=== PATIENT | female | born 1970 | race Caucasian/White ===

== ENCOUNTER 2017-03-23 10:29 | Emergency (ER) | payer BC ==
[2017-03-23] MEDS ORDERED: Meperidine SYRINGE* 50 MG/ML IV ONE (11:31)
[2017-03-23] MEDS ORDERED: Ondansetron INJ* 2 MG/ML VIAL IV ONE (11:31)
[2017-03-23 11:43] LABS: Hematocrit 48 % (35-47); Hemoglobin 15.9 g/dl (12.0-16.0); Mean Corpuscular HGB Conc 33 g/dl (31-36); Mean Corpuscular Hemoglobin 32 pg (27-31); Mean Corpuscular Volume 96 fL (80-97); Mean Platelet Volume 10 um3 (7.4-10.4); Red Blood Count 5.01 10^6/ul (4.0-5.4); Red Cell Distribution Width 13 % (10.5-15); White Blood Count 9.9 10^3/ul (3.5-10.8)
[2017-03-23 11:50] LABS: Urine Bacteria Absent (Absent); Urine Bilirubin Negative (Negative); Urine Glucose Negative (Negative); Urine Nitrite Negative (Negative)
[2017-03-23 11:55] LABS: Albumin 4.2 g/dL (3.2-5.2); BUN/Creatinine Ratio 16.7 (8-20); C Reactive Protein 2.43 mg/L (< 5.00); Calcium 9.2 mg/dL (8.6-10.3); EGFR African American 101.8 (>60); EGFR Non-African American 79.2 (>60); Globulin 3.1 g/dL (2-4); Potassium 4.1 mmol/L (3.5-5.0); Total Bilirubin 0.4 mg/dL (0.2-1.0); Total Protein 7.3 g/dL (6.4-8.9)
--- NOTE | 2017-03-23 13:42 | RAD ---
CLINICAL HISTORY: Right-sided pain COMPARISON: None TECHNIQUE: Multiple contiguous axial CT scans were obtained of the abdomen and pelvis, without intravenous contrast enhancement. Coronal and sagittal multiplanar reformations are submitted for review. Oral contrast was not administered. FINDINGS: The study is limited by the lack of intravenous contrast. This limits evaluation of the solid organs and vasculature. LUNG BASES: The lung bases are clear. LIVER: The liver is normal in shape, size, contour, and attenuation. BILE DUCTS: There is no intrahepatic or extrahepatic biliary dilatation. GALLBLADDER: The gallbladder is normal, without pericholecystic inflammatory change. PANCREAS: The pancreas is normal, without mass or ductal dilatation. SPLEEN: Normal in size and appearance. UPPER GI TRACT: Evaluation of the gastrointestinal tract is limited by incomplete gastric distention. The upper GI tract is unremarkable. SMALL BOWEL AND MESENTERY: The small bowel is normal in contour, course, and caliber. There is no obstruction or dilatation. COLON: The colon is normal in contour, course, caliber. There is no pericolonic inflammatory change. The appendix is not visualized. There is no appreciable inflammatory change within the right lower quadrant. ADRENALS: Normal bilaterally. KIDNEYS: There is a 0.3 cm calculus of the upper pole of left kidney. There is no appreciable hydronephrosis. There is a fatty lesion of the upper pole left kidney consistent with a small angiomyolipoma. BLADDER: The bladder is smooth in contour. PELVIC ORGANS: The pelvic organs are not visualized. AORTA: The aorta is normal. IVC: Unremarkable LYMPH NODES: There is no lymphadenopathy by size criteria. ABDOMINAL WALL: There is no evidence for abdominal wall hernia. BONES AND SOFT TISSUES: Degenerative changes are noted at L5-S1. A dorsal column stimulator generator noted OTHER: None IMPRESSION: LEFT NEPHROLITHIASIS WITHOUT HYDRONEPHROSIS
[2017-03-23 14:28] VITALS: BP 129/77
--- NOTE | 2017-03-24 08:15 | ED ---
Enrike Patton Benjamin, scribed for David Wood MD on 03/23/17 at 1151 . Abdominal Pain/Female - HPI Summary HPI Summary: 47yo female c/o sharp RUQ abdominal pain. Pt had multiple GI tests done recently , including endoscopy, gastroparesis, gall bladder US. Pt has been having nonstop diarrhea for about 1 month, which has been mucousy and watery at times. Pt says her pain worsens with greasy food and has been progressively worsening. Pt is a smoker and a drinker. - History of Current Complaint Chief Complaint: EDAbdPain Stated Complaint: RIGHT ABD PAIN Time Seen by Provider: 03/23/17 10:50 Hx Obtained From: Patient Hx Last Menstrual Period: hysterectomy Onset/Duration: Gradual Onset, Lasting Weeks, Still Present Timing: Constant Severity Initially: Moderate Severity Currently: Moderate Pain Intensity: 8 Pain Scale Used: 0-10 Numeric Location: Discrete At: RUQ Radiates: No Character: Sharp Aggravating Factor(s): Food - greasy food Alleviating Factor(s): Nothing Associated Signs and Symptoms: Positive: Diarrhea Allergies/Adverse Reactions: Allergies Allergy/AdvReac Type Severity Reaction Status Date / Time Sulfa Drugs Allergy Unknown Verified 03/23/17 10:52 Reaction Details IV contrast Allergy Mild Hives Uncoded 07/18/16 08:21 Home Medications: Home Medications Cetirizine* [ZyrTEC 10 MG TAB*] 1 tab PO DAILY 03/23/17 [History Confirmed 03/23] PMH/Surg Hx/FS Hx/Imm Hx Endocrine/Hematology History: Reports: Hx Thyroid Disease - HYPOTHYROID Cardiovascular History: Denies: Hx Pacemaker/ICD - SPINAL STIMULATOR- NO MRI Musculoskeletal History: Reports: Other Musculoskeletal History - SPINAL CORD STIMULATOR Sensory History: Reports: Hx Contacts or Glasses - INSTRUCTS GIVEN, Hx Glaucoma - RIGHT EYE Denies: Hx Hearing Aid Opthamlomology History: Reports: Hx Contacts or Glasses - INSTRUCTS GIVEN, Hx Glaucoma - RIGHT EYE Neurological History: Reports: Other Neuro Impairments/Disorders - SPINAL CORD STIMULATOR IN PLACE- AFFECTING SCIATIC NERVE RIGHT SIDE - Surgical History Surgery Procedure, Year, and Place: partial Hysterectomy. RIGHT shoulder. BACK SURG - PRECISION PLUS SPINAL CORD STIMULATOR - NOT MRI SAFE. INSERTION OF SPINAL CORD STIMULATOR. Right Knee - arthoscopic Hx Anesthesia Reactions: No Infectious Disease History: No Infectious Disease History: Denies: Hx Clostridium Difficile, Hx Hepatitis, Hx Human Immunodeficiency Virus (HIV), Hx of Known/Suspected MRSA, Hx Shingles, Hx Tuberculosis, Hx Known/ Suspected VRE, Hx Known/Suspected VRSA, History Other Infectious Disease, Traveled Outside the [place] in Last 30 Days - Family History Known Family History: Positive: None, Cardiac Disease - Social History Occupation: Employed Full-time Lives: With Family Alcohol Use: Occasionally Alcohol Amount: 2 times a week drinking 1-4 drinks Substance Use Type: Reports: None Smoking Status (MU): Light Every Day Tobacco Smoker Type: Cigarettes Amount Used/How Often: 1/2 PPD X 25 YEARS Length of Time of Smoking/Using Tobacco: 27 years Have You Smoked in the Last Year: Yes Review of Systems Constitutional: Negative Eyes: Negative ENT: Negative Cardiovascular: Negative Respiratory: Negative Positive: Abdominal Pain, Diarrhea Genitourinary: Negative Musculoskeletal: Negative Skin: Negative Neurological: Negative Psychological: Normal All Other Systems Reviewed And Are Negative: Yes Physical Exam Vital Signs On Initial Exam: Initial Vitals Temp Pulse Resp BP Pulse Ox 97.7 F 84 20 151/100 100 03/23/17 10:32 03/23/17 10:32 03/23/17 10:32 03/23/17 10:32 03/23/17 10:32 Vital Signs Reviewed: Yes Appearance: Positive: Well-Appearing, Well-Nourished, Pain Distress - mild Skin: Positive: Warm, Skin Color Reflects Adequate Perfusion, Dry, Other - no jaundice Head/Face: Positive: Normal Head/Face Inspection Eyes: Positive: Normal ENT: Positive: Normal ENT inspection Neck: Positive: Supple, Nontender Respiratory/Lung Sounds: Positive: Clear to Auscultation, Breath Sounds Present Cardiovascular: Positive: RRR Abdomen Description: Positive: Soft, Other: - RUQ pain Bowel Sounds: Positive: Present Musculoskeletal: Positive: Normal Neurological: Positive: Normal Psychiatric: Positive: Affect/Mood Appropriate - Nehemias Coma Scale Coma Scale Total: 15 Diagnostics - Vital Signs Vital Signs Temp Pulse Resp BP Pulse Ox 03/23/17 10:53 140/104 03/23/17 10:35 98.0 F 87 20 151/100 99 03/23/17 10:32 97.7 F 84 20 151/100 100 - Laboratory Lab Results: Lab Results 03/23/17 03/23/17 03/23/17 Range/Units 10:50 10:58 10:58 WBC 9.9 (3.5-10.8) 10^3/ul RBC 5.01 (4.0-5.4) 10^6/ul Hgb 15.9 (12.0-16.0) g/dl Hct 48 H (35-47) % MCV 96 (80-97) fL MCH 32 H (27-31) pg MCHC 33 (31-36) g/dl RDW 13 (10.5-15) % Plt Count 218 (150-450) 10^3/ul MPV 10 (7.4-10.4) um3 Neut % (Auto) 60.8 (38-83) % Lymph % (Auto) 29.4 (25-47) % [place] % (Auto) 5.3 (1-9) % Eos % (Auto) 4.0 (0-6) % Baso % (Auto) 0.5 (0-2) % Absolute Neuts (auto) 6.0 (1.5-7.7) 10^3/ul Absolute Lymphs (auto) 2.9 (1.0-4.8) 10^3/ul Absolute Monos (auto) 0.5 (0-0.8) 10^3/ul Absolute Eos (auto) 0.4 (0-0.6) 10^3/ul Absolute Basos (auto) 0 (0-0.2) 10^3/ul Absolute Nucleated RBC 0.01 10^3/ul Nucleated RBC % 0.1 Sodium 133 (133-145) mmol/L Potassium 4.1 (3.5-5.0) mmol/L Chloride 103 (101-111) mmol/L Carbon Dioxide 24 (22-32) mmol/L Anion Gap 6 (2-11) mmol/L BUN 13 (6-24) mg/dL Creatinine 0.78 (0.51-0.95) mg/dL Est GFR ( Amer) 101.8 (>60) Est GFR (Non-Af Amer) 79.2 (>60) BUN/Creatinine Ratio 16.7 (8-20) Glucose 113 H (70-100) mg/dL Lactic Acid (0.5-2.0) mmol/L Calcium 9.2 (8.6-10.3) mg/dL Total Bilirubin 0.40 (0.2-1.0) mg/dL AST 18 (13-39) U/L ALT 29 (7-52) U/L Alkaline Phosphatase 58 (34-104) U/L C-Reactive Protein 2.43 (< 5.00) mg/L Total Protein 7.3 (6.4-8.9) g/dL Albumin 4.2 (3.2-5.2) g/dL Globulin 3.1 (2-4) g/dL Albumin/Globulin Ratio 1.4 (1-3) Lipase 61 (11.0-82.0) U/L Urine Color Straw Urine Appearance Clear Urine pH 5.0 (5-9) Ur Specific [place] 1.005 L (1.010-1.030) Urine Protein Negative (Negative) Urine Ketones Negative (Negative) Urine Blood 1+ H (Negative) Urine Nitrate Negative (Negative) Urine Bilirubin Negative (Negative) Urine Urobilinogen Negative (Negative) Ur Leukocyte Esterase Negative (Negative) Urine WBC (Auto) Absent (Absent) Urine RBC (Auto) 1+(3-5/hpf) H (Absent) Ur Squamous Epith Cells Present H (Absent) Urine Bacteria Absent (Absent) Urine Glucose Negative (Negative) 03/23/17 Range/Units 10:58 WBC (3.5-10.8) 10^3/ul RBC (4.0-5.4) 10^6/ul Hgb (12.0-16.0) g/dl Hct (35-47) % MCV (80-97) fL MCH (27-31) pg MCHC (31-36) g/dl RDW (10.5-15) % Plt Count (150-450) 10^3/ul MPV (7.4-10.4) um3 Neut % (Auto) (38-83) % Lymph % (Auto) (25-47) % [place] % (Auto) (1-9) % Eos % (Auto) (0-6) % Baso % (Auto) (0-2) % Absolute Neuts (auto) (1.5-7.7) 10^3/ul Absolute Lymphs (auto) (1.0-4.8) 10^3/ul Absolute Monos (auto) (0-0.8) 10^3/ul Absolute Eos (auto) (0-0.6) 10^3/ul Absolute Basos (auto) (0-0.2) 10^3/ul Absolute Nucleated RBC 10^3/ul Nucleated RBC % Sodium (133-145) mmol/L Potassium (3.5-5.0) mmol/L Chloride (101-111) mmol/L Carbon Dioxide (22-32) mmol/L Anion Gap (2-11) mmol/L BUN (6-24) mg/dL Creatinine (0.51-0.95) mg/dL Est GFR ( Amer) (>60) Est GFR (Non-Af Amer) (>60) BUN/Creatinine Ratio (8-20) Glucose (70-100) mg/dL Lactic Acid 1.4 (0.5-2.0) mmol/L Calcium (8.6-10.3) mg/dL Total Bilirubin (0.2-1.0) mg/dL AST (13-39) U/L ALT (7-52) U/L Alkaline Phosphatase (34-104) U/L C-Reactive Protein (< 5.00) mg/L Total Protein (6.4-8.9) g/dL Albumin (3.2-5.2) g/dL Globulin (2-4) g/dL Albumin/Globulin Ratio (1-3) Lipase (11.0-82.0) U/L Urine Color Urine Appearance Urine pH (5-9) Ur Specific [place] (1.010-1.030) Urine Protein (Negative) Urine Ketones (Negative) Urine Blood (Negative) Urine Nitrate (Negative) Urine Bilirubin (Negative) Urine Urobilinogen (Negative) Ur Leukocyte Esterase (Negative) Urine WBC (Auto) (Absent) Urine RBC (Auto) (Absent) Ur Squamous Epith Cells (Absent) Urine Bacteria (Absent) Urine Glucose (Negative) Result Diagrams: 03/23/17 10:58 03/23/17 10:58 Lab Statement: Any lab studies that have been ordered have been reviewed, and results considered in the medical decision making process. - CT CT Abd/Pelv WO CT Interpretation: Positive (See Comments) - IMPRESSION: LEFT NEPHROLITHIASIS WITHOUT HYDRONEPHROSIS CT Interpretation Completed By: Radiologist Re-Evaluation - Re-Evaluation First Eval Re-Evaluation Time: 14:01 Comment: Discussed lab and imaging results with the pt, as well as pt's disposition. Abdominal Pain Fem Course/Dx - Course Course Of Treatment: Ms. Newton presented with several weeks of intermittent RUQ pain. She has a negative GB U/S about a month ago and has had a negative EGD, colonoscopy and gastric emptying study. She was tender in the RUQ, with normal labs and some improvement with Demerol. I recommended that she F/U possibly for a HIDA scan. - Diagnoses Provider Diagnoses: Biliary colic Discharge - Discharge Plan Condition: Stable Disposition: HOME Patient Education Materials: Biliary Colic (ED) Referrals: Fatoumata Hanna MD [Primary Care Provider] - Additional Instructions: F/U with Dr. Hanna to consider a HIDA Scan. The documentation as recorded by the Enrike kurtz Benjamin accurately reflects the service I personally performed and the decisions made by me, David Wood MD.
== END 2017-03-23 14:30 | disposition home or self-care (01) ==
LOC: ED 10:29
DX: K80.50 Calculus of bile duct without cholangitis or cholecystitis without obstruction (principal); N20.0 Calculus of kidney; E03.9 Hypothyroidism, unspecified; Z88.2 Allergy status to sulfonamides; Z91.041 Radiographic dye allergy status; F17.210 Nicotine dependence, cigarettes, uncomplicated
CPT/HCPCS: 36415; 74176; 80053; 81003; 81015; 83605; 83690; 85025; 86140; 96374; 96375; 99283; J2405

== ENCOUNTER 2017-07-19 09:47 | Emergency (ER) | payer BC ==
[2017-07-19 10:00] VITALS: BP 117/87
--- NOTE | 2017-07-19 10:46 | ED ---
Throat Pain/Nasal Congestion - HPI Summary HPI Summary: Pt here w/ URI sx x weeks but new onset ST yesterday. Started as HUI w/ dry cough few weeks ago - better after resting and taking OTC meds. Seems to be creeping back as of last week - dry, intermittent cough returned. Rhinorrhea w/ sneezing at times. PND w/ occasional ear fullness. Nausea yesterday - better today. No vomiting but diarrhea intermittently (NOTE: pt states she has IBS so this is not unusual for her). Has baseline neck stiffness from cervical arthritis - denies numbness, tingling, weakness. Has noted swollen cc LN's past few days. Aching all over this morning. Denies jamaal fever, chills, sinus pain/ pressure. Better w/ madhav seltzer plus last night but once it wore off, sx returned. Gets allergies this time of year so at first thought this was the issue. But w/ new onset laryngitis and now ST, wanted to be checked for strep pharyngitis. Reports she had this last year and it went untreated for a while as tests were neg first few checks but finally positive and tx'd. No known h/o mono. - History of Current Complaint Chief Complaint: UCGeneralIllness Time Seen by Provider: 07/19/17 10:08 Hx Obtained From: Patient - Allergies/Home Medications Allergies/Adverse Reactions: Allergies Allergy/AdvReac Type Severity Reaction Status Date / Time Sulfa Drugs Allergy Unknown Verified 07/19/17 09:54 Reaction Details IV contrast Allergy Mild Hives Uncoded 07/19/17 09:54 Home Medications: Home Medications Otc Allergy Med 1 tab PO 07/19/17 [History] Luxdbxanehwxz-Quasnaokfw-Qeieu [Madhav-[place] Plus Severe 10-12.5-20-650 mg] 1 [History] PMH/Surg Hx/FS Hx/Imm Hx Previously Healthy: Yes Endocrine/Hematology History: Reports: Hx Thyroid Disease Cardiovascular History: Denies: Hx Pacemaker/ICD - SPINAL STIMULATOR- NO MRI Respiratory History: Reports: Hx Asthma Musculoskeletal History: Reports: Other Musculoskeletal History - SPINAL CORD STIMULATOR Sensory History: Reports: Hx Contacts or Glasses - INSTRUCTS GIVEN, Hx Glaucoma - RIGHT EYE Denies: Hx Hearing Aid Opthamlomology History: Reports: Hx Contacts or Glasses - INSTRUCTS GIVEN, Hx Glaucoma - RIGHT EYE Neurological History: Reports: Other Neuro Impairments/Disorders - SPINAL CORD STIMULATOR IN PLACE- AFFECTING SCIATIC NERVE RIGHT SIDE - Surgical History Surgery Procedure, Year, and Place: partial Hysterectomy. RIGHT shoulder. BACK SURG - PRECISION PLUS SPINAL CORD STIMULATOR - NOT MRI SAFE. INSERTION OF SPINAL CORD STIMULATOR. 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 Negative: Shortness Of Breath Gastrointestinal: Other - see HPI Positive: no symptoms reported Musculoskeletal: Other - see HPI Skin: Negative Negative: Rash Positive: Headache - dull, generalized Psychological: Normal All Other Systems Reviewed And Are Negative: Yes Physical Exam Triage Information Reviewed: Yes Vital Signs On Initial Exam: Initial Vitals Temp Pulse Resp BP Pulse Ox 97.8 F 83 18 117/87 99 07/19/17 09:56 07/19/17 09:56 07/19/17 09:56 07/19/17 09:56 07/19/17 09:56 Vital Signs Reviewed: Yes Appearance: Positive: Well-Appearing, No Pain Distress, Well-Nourished Skin: Positive: Warm, Dry - no rash Head/Face: Positive: Normal Head/Face Inspection - sinuses NTTP Eyes: Positive: Normal, EOMI, SMITH, Conjunctiva Clear. Negative: Conjunctiva Inflammed, Discharge ENT: Positive: Normal ENT inspection, Hearing grossly normal, Pharynx normal, Nasal congestion - mild, TMs normal, Other - sounds like early stages of laryngitis. Negative: Nasal drainage, Tonsillar swelling, Tonsillar exudate Neck: Positive: Supple, Tenderness @, Enlarged Nodes @ - shotty cc LN's Respiratory/Lung Sounds: Positive: Clear to Auscultation, Breath Sounds Present. Negative: Rales, Rhonchi, Wheezes Cardiovascular: Positive: Normal, RRR, S1, S2. Negative: Murmur, Rub Abdomen Description: Positive: Nontender, Soft Bowel Sounds: Positive: Present Musculoskeletal: Positive: Normal, Strength/ROM Intact Neurological: Positive: Normal, Sensory/Motor Intact, Alert, Oriented to Person Place, Time, CN Intact II-III Psychiatric: Positive: Anxious Diagnostics - Vital Signs Vital Signs Temp Pulse Resp BP Pulse Ox 07/19/17 09:56 97.8 F 83 18 117/87 99 - Laboratory Lab Statement: Any lab studies that have been ordered have been reviewed, and results considered in the medical decision making process. EENT Course/Dx - Course Course Of Treatment: Suspect viral URI w/ neg CENTOR criteria however w/ h/o bacterial strep infection last year, pt requesting initiation of anbx today. Cx sent for confirmation either way. Explained that her allergies and smoking may contribute to prolonged sx - she is aware and actively reducing her smoking. She also lives w/ a smoker and is working to have him smoke outside and/or not around her. Education provided. Reviewed sx tx as well and danger s/sx of when to return. - Diagnoses Provider Diagnoses: URI, acute Discharge - Discharge Plan Condition: Stable Disposition: HOME Prescriptions: Amoxicillin PO (*) [Amoxicillin 500 MG CAP*] 500 mg PO Q12H #20 cap Patient Education Materials: Upper Respiratory Infection (ED), How to Stop Smoking (ED) Referrals: Fatoumata Hanna MD [Primary Care Provider] - Additional Instructions: You appear to have a viral URI however w/ past history of strep with prolonged illness, will start antibiotics today. Formal culture sent to lab today. Follow- up with PCP this week if same or worse to discuss potential need to update treatment plan. In the meantime, you may try: Nasal wash (netti pot) & throat gargle 2 x day with 8 ounces of warm water + 1/ 4 teaspoon of salt Drink 60+ ounces of water daily Sleep 8+ hours per night Avoid Dairy and sugar Hot herbal/decaf tea with lemon & honey Chicken broth (preferably organic, free range chicken) Humidifier in house, but especially near bed at night Try a facial steam with or without eucalyptus essential oil OR Newton's vapor rub Cough drops Consider taking Vitamin D3 5,000iu and Vitamin C 1,000mg every day during illness Start probiotics in between and after completion of antibiotics (ie. Yogurt and/ or capsules of L. acidophilus, L. bifidus, L. casei, etc - make sure to get these from the refrigerated food section as they are live and active cultures) Smoking cessation as discussed. It is also important that you avoid 2nd hand smoke (being around smokers while they are smoking) as well as 3rd hand smoke ( being around smokers after they have smoked - this is also dangerous due to the chemicals still lingering on clothes, hair and skin). These exposures can prolong healing and even prevent healing/worsen infection. You may also avoid candles, air fresheners, perfumes, cleaning chemicals, etc to reduce risk of bronchitis, sinus infection, etc. *If you develop difficulty swallowing or breathing, go to ED
== END 2017-07-19 11:09 | disposition home or self-care (01) ==
LOC: UCEAST 09:47
DX: J06.9 Acute upper respiratory infection, unspecified (principal); E07.9 Disorder of thyroid, unspecified; J45.909 Unspecified asthma, uncomplicated; Z90.711 Acquired absence of uterus with remaining cervical stump; Z88.2 Allergy status to sulfonamides; Z91.041 Radiographic dye allergy status; F17.210 Nicotine dependence, cigarettes, uncomplicated
CPT/HCPCS: 87070; 87651; 99212; G0463

== ENCOUNTER 2017-11-02 10:18 | Emergency (ER) | payer BC ==
[2017-11-02 10:42] VITALS: BP 123/66
--- NOTE | 2017-11-02 11:59 | UC ---
Respiratory Complaint HPI - HPI Summary HPI Summary: 47 yo female with <24 hour hx of f/c, cough, sore throat, headache, myalgias no n/v/d no CP or SOB - History of Current Complaint Chief Complaint: UCGeneralIllness Stated Complaint: FLU SYMPTOMS Time Seen by Provider: 11/02/17 11:43 Hx Obtained From: Patient Hx Last Menstrual Period: hysterectomy Onset/Duration: Sudden Onset, Lasting Hours Severity Initially: Mild Severity Currently: Moderate Pain Intensity: 6 Pain Scale Used: 0-10 Numeric Character: Cough: Nonproductive Aggravating Factors: Nothing Associated Signs And Symptoms: Positive: Fever, Chills, Nasal Congestion, Sinus Discomfort - Allergies/Home Medications Allergies/Adverse Reactions: Allergies Allergy/AdvReac Type Severity Reaction Status Date / Time Sulfa Drugs Allergy Unknown Verified 11/02/17 10:42 Reaction Details IV contrast Allergy Mild Hives Uncoded 11/02/17 10:42 PMH/Surg Hx/FS Hx/Imm Hx Previously Healthy: Yes Respiratory History: Bronchitis, Pneumonia - Surgical History Surgical History: Yes Surgery Procedure, Year, and Place: partial Hysterectomy. RIGHT shoulder. BACK SURG - PRECISION PLUS SPINAL CORD STIMULATOR - NOT MRI SAFE. INSERTION OF SPINAL CORD STIMULATOR. Right Knee - arthoscopic - Family History Known Family History: Positive: Cardiac Disease - Social History Alcohol Use: Weekly Alcohol Amount: 2 times a week drinking 1-4 drinks Substance Use Type: None Smoking Status (MU): Current Every Day Smoker Type: Cigarettes Amount Used/How Often: 1/2 PPD X 25 YEARS Length of Time of Smoking/Using Tobacco: 27 years Have You Smoked in the Last Year: Yes When Did the Patient Quit Smoking/Using Tobacco: 06/21/14 Household Exposure Type: Cigarettes - Immunization History Most Recent Influenza Vaccination: 2013 Most Recent Tetanus Shot: utd Review of Systems Constitutional: Fever, Chills, Fatigue Skin: Negative Eyes: Negative ENT: Sore Throat, Nasal Discharge, Sinus Congestion Respiratory: Cough Cardiovascular: Negative Gastrointestinal: Negative Genitourinary: Negative Motor: Negative Neurovascular: Negative Musculoskeletal: Myalgia Neurological: Headache Psychological: Negative Is Patient Immunocompromised?: No All Other Systems Reviewed And Are Negative: Yes Physical Exam Triage Information Reviewed: Yes Appearance: Well-Appearing, No Pain Distress, Well-Nourished Vital Signs: Initial Vital Signs Temp 100.4 F 11/02/17 10:37 Pulse 101 11/02/17 10:37 Resp 20 11/02/17 10:37 BP 123/66 11/02/17 10:37 Pulse Ox 98 11/02/17 10:37 Vital Signs Reviewed: Yes Eyes: Positive: Conjunctiva Clear ENT: Positive: Hearing grossly normal, Pharyngeal erythema, Nasal congestion, Nasal drainage, Uvula midline. Negative: Tonsillar swelling, Tonsillar exudate , Trismus, Muffled voice, Dental tenderness, Sinus tenderness Neck: Positive: Supple, Nontender, Enlarged Nodes @ - ant cervical Respiratory: Positive: Normal breath sounds, No respiratory distress, Rhonchi - left sided Cardiovascular: Positive: RRR, No Murmur Musculoskeletal: Positive: ROM Intact, No Edema Neurological Exam: Normal Psychological Exam: Normal Skin Exam: Normal UC Diagnostic Evaluation - Laboratory Pertinent Lab Values Are: WNL - influenxa and sgtrep (-) O2 Sat by Pulse Oximetry: 98 - normal/not hypoxic - Radiology Xray Interpretation: No Acute Changes Radiology Interpretation Completed By: Radiologist Respiratory Course/Dx - Differential Dx/Diagnosis Provider Diagnoses: inlfuenza or influenza like illness Discharge - Discharge Plan Condition: Stable Disposition: HOME Patient Education Materials: Influenza (ED) Forms: *Work Release Referrals: Fatoumata Hanna MD [Primary Care Provider] - 4 Days (if not better) Additional Instructions: flu like illness recheck for new or worsening symptoms rest tylenol or advil robitussin or mucinex
--- NOTE | 2017-11-02 12:24 | RAD ---
Indication: Fever, cough. Comparison is made with previous exam dated June 24, 2014. The heart and mediastinal structures are midline with no midline shift. The heart demonstrates normal configuration and size.. Lung celis appear clear. Neurostimulator leads are unchanged in position when compared to previous exam. IMPRESSION: No active cardiopulmonary disease is noted.
== END 2017-11-02 12:41 | disposition home or self-care (01) ==
LOC: UCEAST 10:18
DX: J11.1 Influenza due to unidentified influenza virus with other respiratory manifestations (principal); Z88.2 Allergy status to sulfonamides; Z91.041 Radiographic dye allergy status; F17.210 Nicotine dependence, cigarettes, uncomplicated
CPT/HCPCS: 71046; 87502; 87651; 99212; G0463

== ENCOUNTER 2018-02-10 10:42 | Emergency (ER) | payer BC ==
--- NOTE | 2018-02-10 12:18 | RAD ---
Indication: Right leg edema. Duplex Doppler sonography of the deep venous system of the right lower extremity deep venous system was performed. Bilaterally the common femoral veins appear patent and compressible. Right proximal greater saphenous vein, proximal deep femoral vein, femoral vein, popliteal vein, posterior tibial veins and peroneal veins appear patent and compressible. IMPRESSION: NO EVIDENCE OF DEEP VENOUS THROMBOSIS IS IDENTIFIED.
--- NOTE | 2018-02-10 12:52 | ED ---
Back Pain - HPI Summary HPI Summary: Patient is a 48-year-old female presenting to the ED with chief complaint of right lower back pain radiating into the right thigh with associated right knee swelling. Pain is a 9 out of 10, intermittent and spasmodic. History of knee surgery on the ipsilateral knee by Dr. Dockery. She endorses pain since last evening and states she has been having worsening spasmodic episodes with numbness to the right foot. She states she has had this intermittently due to her sciatica. Denies any fevers, sweats, chills. Denies any bladder or bowel dysfunction. Denies any erythema or warmth to the knee or ipsilateral leg. She has been taking ibuprofen and Tylenol without relief. - History of Current Complaint Chief Complaint: EDExtremityLower Stated Complaint: RT LEG PAIN Time Seen by Provider: 02/10/18 10:56 Hx Obtained From: Patient Hx Last Menstrual Period: hysterectomy Onset/Duration: Sudden Onset Onset/Duration: Started Hours Ago Timing: Constant Back Pain Location: Is Discrete @ - Right lower back extending into the right front thigh and posterior leg with numbness to the foot which is intermittent Severity Initially: Moderate Severity Currently: Moderate Pain Intensity: 10 Character: Aching, Spasmodic Alleviating Symptom(s): Rest, Position Associated Signs And Symptoms: Negative: Swelling, Redness, Bruising - Risk Factors AAA Risk Factors: Negative TAD Risk Factors: Negative Cauda Equina Risk Factors: Negative Epidural Abscess Risk Factors: Negative - Allergies/Home Medications Allergies/Adverse Reactions: Allergies Allergy/AdvReac Type Severity Reaction Status Date / Time Sulfa (Sulfonamide Allergy Unknown Verified 01/30/18 08:43 Antibiotics) Reaction Details IV contrast Allergy Mild Hives Uncoded 01/30/18 08:43 Home Medications: Home Medications Cetirizine HCl [Zyrtec] 10 mg PO DAILY 02/10/18 [History Confirmed 02/10/18] Ibuprofen 600 mg PO Q8HR PRN 02/10/18 [History Confirmed 02/10/18] PMH/Surg Hx/FS Hx/Imm Hx Previously Healthy: Yes Endocrine/Hematology History: Reports: Hx Thyroid Disease Denies: Hx Diabetes Cardiovascular History: Denies: Hx Hypertension, Hx Pacemaker/ICD - SPINAL STIMULATOR- NO MRI Respiratory History: Reports: Hx Asthma Denies: Hx Chronic Obstructive Pulmonary Disease (COPD) Musculoskeletal History: Reports: Other Musculoskeletal History - SPINAL CORD STIMULATOR Sensory History: Reports: Hx Contacts or Glasses - INSTRUCTS GIVEN, Hx Glaucoma - RIGHT EYE Denies: Hx Hearing Aid Opthamlomology History: Reports: Hx Contacts or Glasses - INSTRUCTS GIVEN, Hx Glaucoma - RIGHT EYE Neurological History: Reports: Other Neuro Impairments/Disorders - SPINAL CORD STIMULATOR IN PLACE- AFFECTING SCIATIC NERVE RIGHT SIDE - Surgical History Surgery Procedure, Year, and Place: partial Hysterectomy. RIGHT shoulder. BACK SURG - PRECISION PLUS SPINAL CORD STIMULATOR - NOT MRI SAFE. INSERTION OF SPINAL CORD STIMULATOR. Right Knee - arthoscopic Hx Anesthesia Reactions: No - Immunization History Hx Pertussis Vaccination: No Immunizations Up to Date: Unable to Obtain/Confirm Infectious Disease History: No Infectious Disease History: Denies: Hx Clostridium Difficile, Hx Hepatitis, Hx Human Immunodeficiency Virus (HIV), Hx of Known/Suspected MRSA, Hx Shingles, Hx Tuberculosis, Hx Known/ Suspected VRE, Hx Known/Suspected VRSA, History Other Infectious Disease, Traveled Outside the [place] in Last 30 Days - Family History Known Family History: Positive: Cardiac Disease - Social History Occupation: Unemployed Lives: With Family Alcohol Use: Weekly Alcohol Amount: 2 times a week drinking 1-4 drinks Hx Substance Use: No Substance Use Type: Reports: None Hx Tobacco Use: Yes Smoking Status (MU): Heavy Every Day Tobacco Smoker Type: Cigarettes Amount Used/How Often: 1/2 PPD X 25 YEARS Length of Time of Smoking/Using Tobacco: 27 years Have You Smoked in the Last Year: Yes Review of Systems Constitutional: Negative Negative: Fever, Chills, Fatigue, Skin Diaphoresis Eyes: Negative Cardiovascular: Negative Negative: Shortness Of Breath, Cough Negative: Abdominal Pain - family, Vomiting, Diarrhea, Nausea Genitourinary: Negative Positive: no symptoms reported, see HPI Positive: Myalgia - not Skin: Negative Positive: Paresthesia, Numbness All Other Systems Reviewed And Are Negative: Yes Physical Exam Triage Information Reviewed: Yes Vital Signs On Initial Exam: Initial Vitals Temp Pulse Resp BP Pulse Ox 98 F 95 16 145/90 96 02/10/18 10:50 02/10/18 10:50 02/10/18 10:50 02/10/18 10:50 02/10/18 10:50 Vital Signs Reviewed: Yes Appearance: Positive: Well-Appearing, Well-Nourished Skin: Positive: Skin Color Reflects Adequate Perfusion Head/Face: Positive: Normal Head/Face Inspection Eyes: Positive: EOMI, SMITH, Conjunctiva Clear Neck: Positive: Supple, No Lymphadenopathy Respiratory/Lung Sounds: Positive: Clear to Auscultation Cardiovascular: Positive: RRR, Pulses are Symmetrical in both Upper and Lower Extremities Musculoskeletal: Positive: Pain @ - R lower back with radiation to the R posterior leg Neurological: Positive: Sensory/Motor Intact, Alert, Oriented to Person Place, Time, CN Intact II-III, Reflexes Intact, Normal Gait, Speech Normal Psychiatric: Positive: Normal, Affect/Mood Appropriate AVPU Assessment: Alert Diagnostics - Vital Signs Vital Signs Temp Pulse Resp BP Pulse Ox 02/10/18 10:50 98 F 95 16 145/90 96 - Laboratory Lab Statement: Any lab studies that have been ordered have been reviewed, and results considered in the medical decision making process. Back Pain Course/Dx - Course Course Of Treatment: Patient evaluated for right lower back pain extending into the posterior thigh and radiating to the right foot with numbness and tingling. Denies any bladder or bowel dysfunction. History of low back pain and has an indwelling stimulator. She is still with this before, but states the difference today was that her right knee has swollen up. She admits to spasmodic episodes, not relieved with ibuprofen and Tylenol. I discussed with her at length treatment options. I have offered her steroid and a muscle relaxer at this time. The knee is not swollen on physical exam. Ultrasound obtained which does not show a DVT or estrada's cyst. She is referred back to Dr. Dockery for any knee pain and will follow up with her PCP for any worsening back pain. She is okay with this initial plan and understands to return for any bladder or bowel dysfunction. - Diagnoses Differential Diagnosis/HQI/PQRI: Positive: Herniated Disc, Strain, Sprain, Other - Chronic back pain Provider Diagnoses: Sciatic leg pain, Lumbar radicular pain Discharge - Sign-Out/Discharge Documenting (check all that apply): Discharge - Discharge Plan Condition: Stable Disposition: HOME Prescriptions: predniSONE TAB* [Deltasone TAB*] 50 mg PO DAILY #5 tab MDD 1 tiZANidine TAB* [Zanaflex TAB*] 2 mg PO TID #15 tab Patient Education Materials: Sciatica (ED), Lumbar Radiculopathy (ED), Lower Back Exercises (ED) Referrals: Fatoumata Hanna MD [Primary Care Provider] - Additional Instructions: Moist heat to the area as much as possible Ibuprofen 600 mg 3 times daily Tylenol 650 mg 3 times daily Please take these on opposite schedules to allow for more even pain control Tizanidine may be used up to 3 times daily, but is usually effective at once or twice daily Do not drive on this medication Prednisone 50 mg once daily 5 days Please follow-up with Dr. Dockery for any knee swelling If he develop any redness or warmth to the knee, return to the ED Rest as much as possible, but after moist heat to the area, attempted to stretch out the back - Billing Disposition and Condition Condition: STABLE Disposition: HOME
[2018-02-10 13:02] VITALS: BP 149/92
== END 2018-02-10 13:03 | disposition home or self-care (01) ==
LOC: ED 10:42
DX: M54.41 Lumbago with sciatica, right side (principal); R60.0 Localized edema; F17.210 Nicotine dependence, cigarettes, uncomplicated; E07.9 Disorder of thyroid, unspecified
CPT/HCPCS: 99282

== ENCOUNTER 2018-06-06 18:06 | Emergency (ER) | payer BC ==
[2018-06-06] MEDS ORDERED: Morphine VIAL* 10 MG/ML 1 ML VIAL IV ONE (20:35)
[2018-06-06] MEDS ORDERED: Ondansetron ODT TAB* 4 MG PO ONE (20:35)
[2018-06-06] MEDS ORDERED: NS 0.9% 1000 ML* 1,000 ML IV ONE (20:35)
[2018-06-06] MEDS ORDERED: diPHENhydraMINE IV* 50 MG/ML 1 ml VIAL (BENADRYL) IV ONE (20:35)
[2018-06-06] MEDS ORDERED: methylPREDNISolone 125 MG* 2 ML VIAL IV ONE (20:43)
--- NOTE | 2018-06-06 20:43 | ED ---
Abdominal Pain/Female - HPI Summary HPI Summary: Patient with history of cholecystectomy and at [place] complains of right -sided abdominal pain, low right back pain, burning with urination, N/V 2, vaginal itching 2 days. Denies fever, cough, sore throat, CP, SOB, other vaginal symptoms. Medical history is hypothyroid. Abdominal/pelvic surgical history is cholecystectomy. - History of Current Complaint Chief Complaint: EDAbdPain Stated Complaint: FLANK/BACK PAIN Time Seen by Provider: 06/06/18 19:56 Hx Obtained From: Patient Hx Last Menstrual Period: hysterectomy Onset/Duration: Sudden Onset Timing: Constant Severity Initially: Moderate Severity Currently: Moderate Pain Intensity: 7 Pain Scale Used: 0-10 Numeric Location: Discrete At: RUQ, Discrete At: RLQ, Flank Radiates to: Back, Flank Character: Sharp Aggravating Factor(s): Nothing Alleviating Factor(s): Nothing Associated Signs and Symptoms: Positive: Back Pain, Urinary Symptoms, Nausea, Vomiting Allergies/Adverse Reactions: Allergies Allergy/AdvReac Type Severity Reaction Status Date / Time Sulfa (Sulfonamide Allergy Unknown Verified 06/06/18 18:09 Antibiotics) Reaction Details IV contrast Allergy Mild Hives Uncoded 06/06/18 18:09 PMH/Surg Hx/FS Hx/Imm Hx Endocrine/Hematology History: Reports: Hx Thyroid Disease Denies: Hx Anticoagulant Therapy, Hx Diabetes Cardiovascular History: Denies: Hx Hypertension, Hx Pacemaker/ICD - SPINAL STIMULATOR- NO MRI Respiratory History: Reports: Hx Asthma Denies: Hx Chronic Obstructive Pulmonary Disease (COPD) History: Denies: Hx Dialysis Musculoskeletal History: Reports: Other Musculoskeletal History - SPINAL CORD STIMULATOR Sensory History: Reports: Hx Contacts or Glasses - INSTRUCTS GIVEN, Hx Glaucoma - RIGHT EYE Denies: Hx Hearing Aid Opthamlomology History: Reports: Hx Contacts or Glasses - INSTRUCTS GIVEN, Hx Glaucoma - RIGHT EYE Neurological History: Reports: Other Neuro Impairments/Disorders - SPINAL CORD STIMULATOR IN PLACE- AFFECTING SCIATIC NERVE RIGHT SIDE Denies: Hx CVA - Surgical History Surgery Procedure, Year, and Place: partial Hysterectomy. RIGHT shoulder. BACK SURG - PRECISION PLUS SPINAL CORD STIMULATOR - NOT MRI SAFE. INSERTION OF SPINAL CORD STIMULATOR. Right Knee - arthoscopic Hx Anesthesia Reactions: No Infectious Disease History: No Infectious Disease History: Denies: Hx Clostridium Difficile, Hx Hepatitis, Hx Human Immunodeficiency Virus (HIV), Hx of Known/Suspected MRSA, Hx Shingles, Hx Tuberculosis, Hx Known/ Suspected VRE, Hx Known/Suspected VRSA, History Other Infectious Disease, Traveled Outside the [place] in Last 30 Days - Family History Known Family History: Positive: Cardiac Disease - Social History Alcohol Use: Occasionally Alcohol Amount: 2 times a week drinking 1-4 drinks Hx Substance Use: No Substance Use Type: Reports: None Hx Tobacco Use: Yes Smoking Status (MU): Light Every Day Tobacco Smoker Type: Cigarettes Amount Used/How Often: 1/2 PPD X 25 YEARS Length of Time of Smoking/Using Tobacco: 27 years Have You Smoked in the Last Year: Yes Review of Systems Constitutional: Negative Eyes: Negative ENT: Negative Cardiovascular: Negative Respiratory: Negative Positive: Abdominal Pain Positive: burning, discharge, frequency, urgency Musculoskeletal: Negative Skin: Negative Neurological: Negative Psychological: Normal All Other Systems Reviewed And Are Negative: Yes Physical Exam - Summary Physical Exam Summary: Tenderness to palpation along right side over sites of laparoscopic sites on right side.. Localized erythema. No masses, purulent discharge, ecchymosis, extra warmth noted to the surgical site. No tenderness to palpation right lower quadrant or any other quadrant other than the right side and right upper quadrant. Triage Information Reviewed: Yes Vital Signs On Initial Exam: Initial Vitals Temp Pulse Resp BP Pulse Ox 98.0 F 78 16 164/84 96 06/06/18 18:07 06/06/18 18:07 06/06/18 18:07 06/06/18 18:07 06/06/18 18:07 Vital Signs Reviewed: Yes Appearance: Positive: Well-Appearing Skin: Positive: Warm Head/Face: Positive: Normal Head/Face Inspection Eyes: Positive: Normal Neck: Positive: Supple Respiratory/Lung Sounds: Positive: Clear to Auscultation Cardiovascular: Positive: Normal Abdomen Description: Positive: Other: Musculoskeletal: Positive: Normal Neurological: Positive: Normal Psychiatric: Positive: Normal AVPU Assessment: Alert - Nehemias Coma Scale Best Eye Response: 4 - Spontaneous Best Motor Response: 6 - Obeys Commands Best Verbal Response: 5 - Oriented Coma Scale Total: 15 Diagnostics - Vital Signs Vital Signs Temp Pulse Resp BP Pulse Ox 06/06/18 18:07 98.0 F 78 16 164/84 96 - Laboratory Result Diagrams: 06/06/18 21:08 06/06/18 21:08 Lab Statement: Any lab studies that have been ordered have been reviewed, and results considered in the medical decision making process. - CT ab/pel CT Interpretation: No Acute Changes CT Interpretation Completed By: Radiologist Abdominal Pain Fem Course/Dx - Course Course Of Treatment: Patient with history of cholecystectomy and at [place] complains of right-sided abdominal pain, low right back pain, burning with urination, N/V 2, vaginal itching 2 days. Denies fever, cough, sore throat, CP, SOB, other vaginal symptoms. Medical history is hypothyroid. Abdominal/pelvic surgical history is cholecystectomy. Physical exam:Tenderness to palpation along right side over sites of laparoscopic sites on right side.. Localized erythema. No masses, purulent discharge, ecchymosis, extra warmth noted to the surgical sites. No tenderness to palpation right lower quadrant or any other quadrant other than the right side and right upper quadrant. Vital signs and imaging unremarkable. UA positive. Patient started on Macrobid 100 mg by mouth here in the ED, Rx for same. Follow-up with surgery - Diagnoses Provider Diagnoses: UTI (urinary tract infection) Discharge - Sign-Out/Discharge Documenting (check all that apply): Patient Departure - Discharge Plan Condition: Stable Disposition: HOME Prescriptions: HYDROcodone/ACETAMIN 5-325 MG* [[place] 5-325 TAB*] 1 tab PO TID 1 Days #4 tab MDD 3 tabs Nitrofurantoin Monohyd/M-Cryst [Macrobid 100 mg Capsule] 100 mg PO BID 10 Days # 20 cap Patient Education Materials: Urinary Tract Infection in Women (ED) Referrals: Fatoumata Hanna MD [Primary Care Provider] - Additional Instructions: Take antibiotics as directed. Follow-up with primary care. Return to the ED for any new or worsening symptoms - Billing Disposition and Condition Condition: STABLE Disposition: Home
[2018-06-06] MEDS ORDERED: Acetaminophen TAB* 325 MG PO ONE (20:45)
[2018-06-06 21:05] LABS: Urine Appearance Clear; Urine Blood Negative (Negative); Urine Color Amber; Urine Ketones Negative (Negative); Urine Protein Negative (Negative); Urine Red Blood Cell 1+(3-5/hpf) (Absent); Urine Specific Gravity 1.013 (1.010-1.030); Urine Urobilinogen Positive (Negative); Urine White Blood Cell Trace(0-5/hpf) (Absent)
[2018-06-06 21:16] LABS: ABS Basophils 0.1 10^3/ul (0-0.2); ABS Eosinophils 0.7 10^3/ul (0-0.6); ABS Lymphocytes 3.5 10^3/ul (1.0-4.8); ABS Monocytes 0.6 10^3/ul (0-0.8); ABS Neutrophils 6.4 10^3/ul (1.5-7.7); ABS Nucleated RBC 0 10^3/ul; Eosinophil % 5.8 % (0-6); Hematocrit 44 % (35-47); Hemoglobin 14.8 g/dl (12.0-16.0); Mean Corpuscular HGB Conc 34 g/dl (31-36); Mean Corpuscular Hemoglobin 32 pg (27-31); Mean Corpuscular Volume 96 fL (80-97); Mean Platelet Volume 9.1 um3 (7.4-10.4); Nucleated Red Blood Cells % 0.1; Platelet Count 233 10^3/ul (150-450); Red Blood Count 4.56 10^6/ul (4.00-5.40); Red Cell Distribution Width 12 % (10.5-15); White Blood Count 11.3 10^3/ul (3.5-10.8)
[2018-06-06 22:14] LABS: EGFR Non-African American 81.2 (>60)
[2018-06-06] MEDS ORDERED: Iohexol 300* (CONTRAST) 10 ML SDV IV ONE (22:29)
--- NOTE | 2018-06-06 23:24 | RAD ---
EXAM: CT Abdomen and Pelvis With Intravenous Contrast CLINICAL HISTORY: 48 years old, female; Pain; Abdominal pain; Localized; Right upper quadrant (ruq); Prior surgery; Surgery date: 3-7 days post-operative; Surgery type: Simona; Additional info: New onset rt side pain S/P simona 05/31 TECHNIQUE: Axial computed tomography images of the abdomen and pelvis with intravenous contrast. Coronal and sagittal reformatted images were created and reviewed. COMPARISON: A/P WO CT ABD/PEL W/O 2017-03-23 13:26 FINDINGS: Lung bases: Normal. No mass. No consolidation. ABDOMEN: Liver: Normal hepatic size and attenuation with no focal lesions. Gallbladder and bile ducts: Interval removal of patient's gallbladder with tiny volume of postsurgical fluid within the gallbladder fossa. No encapsulated fluid collections. No intra-or extrahepatic biliary dilation. Pancreas: Normal. No mass. No ductal dilation. Spleen: Normal. No splenomegaly. Adrenals: Normal. No mass. Kidneys and ureters: Nonobstructing renal calculus left superior pole. 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 No pelvocaliectasis or right renal calculi. Stomach and bowel: Incompletely distended grossly normal stomach. Normal caliber small bowel. No colonic masses or segmental wall thickening. PELVIS: Appendix: Nonvisualized appendix with no secondary findings to suggest appendicitis. Bladder: Thin-walled bladder with no focal nodularity, perivesicular stranding, or calcifications. Reproductive: Surgically absent uterus. Normal ovaries. ABDOMEN and PELVIS: Intraperitoneal space: Normal. No pneumoperitoneum. No ascities. Bones/joints: The spine demonstrates mild degenerative changes at multiple levels. No fractures. No suspicious bone lesions. Soft tissues: Small fat-containing indirect left inguinal hernia. No stranding. Small amount of stranding along the umbilicus from prior surgery. Posterior right lower back subcutaneous neural generator stimulator with 2 intrathecal leads. Vasculature: Normal caliber aorta with no evidence of dissection or rupture. Patent IVC. Lymph nodes: Normal. No enlarged lymph nodes. IMPRESSION: 1. Expected findings post cholecystectomy with no findings to correlate with patient's symptomology. 2. Additional incidental findings as described.
[2018-06-06] MEDS ORDERED: Ciprofloxacin TAB* 500 MG PO ONE (23:39)
[2018-06-06] MEDS ORDERED: Nitrofurantoin Macrocrystals* 100 MG CAP PO ONE (23:43)
[2018-06-06 23:59] VITALS: BP 135/69
== END 2018-06-06 23:59 | disposition home or self-care (01) ==
LOC: ED 18:06
DX: R51 Headache (principal); B34.9 Viral infection, unspecified; R50.9 Fever, unspecified; R05 Cough; J02.9 Acute pharyngitis, unspecified; R09.81 Nasal congestion; R19.7 Diarrhea, unspecified; Z87.891 Personal history of nicotine dependence
CPT/HCPCS: 36415; 74177; 80053; 81003; 81015; 83605; 83690; 84702; 85025; 86140; 87086; 96374; 96375; 99283; A9270-GY; J1200; J2270; J2930; Q9967

== ENCOUNTER 2018-10-27 11:27 | Emergency (ER) | payer BC ==
[2018-10-27 12:02] VITALS: BP 135/84
--- NOTE | 2018-10-27 12:36 | UC ---
UC General HPI - HPI Summary HPI Summary: 8 days ago began with vomiting and diarrhea 3 days later she began to feel better-diarrhea has resolved---continues with fever and nausea---also uri complaints---patient reports her coworker has "THE FLU" - History of Current Complaint Chief Complaint: UCGeneralIllness Stated Complaint: STOMACH PAIN, NAUSEA Time Seen by Provider: 10/27/18 12:18 Hx Obtained From: Patient Hx Last Menstrual Period: hysterectomy Onset/Duration: Sudden Onset, Lasting Days - 8, Still Present Timing: Constant Pain Intensity: 4 Pain Location at: abdomen and generalized body aches Associated Signs & Symptoms: Positive: Diarrhea, Fever, Nausea, Vomiting - Allergy/Home Medications Allergies/Adverse Reactions: Allergies Allergy/AdvReac Type Severity Reaction Status Date / Time Sulfa (Sulfonamide Allergy Unknown Verified 10/27/18 12:02 Antibiotics) Reaction Details IV contrast Allergy Mild Hives Uncoded 10/27/18 12:02 Home Medications: Home Medications Dm/Acetaminophen/Doxylamine [Eql Night Cold-Flu Relief Sfgl] 1 cap PO ONCE 10/27 [History Confirmed 10/27/18] tiZANidine TAB* [Zanaflex TAB*] 2 mg PO TID PRN 10/27/18 [History Confirmed 03/10] PMH/Surg Hx/FS Hx/Imm Hx Previously Healthy: No Endocrine History: Hypothyroidism Other History Of: Negative For: Anticoagulant Therapy - Surgical History Surgical History: Yes Surgery Procedure, Year, and Place: partial Hysterectomy. RIGHT shoulder. BACK SURG - PRECISION PLUS SPINAL CORD STIMULATOR - NOT MRI SAFE. INSERTION OF SPINAL CORD STIMULATOR. Right Knee - arthoscopic. cholecystectomy - Family History Known Family History: Positive: Cardiac Disease - Social History Occupation: Employed Full-time Lives: With Family Alcohol Use: Occasionally Alcohol Amount: 2 times a week drinking 1-4 drinks Substance Use Type: None Smoking Status (MU): Light Every Day Tobacco Smoker Type: Cigarettes Amount Used/How Often: 1/2 PPD X 25 YEARS Length of Time of Smoking/Using Tobacco: 27 years Have You Smoked in the Last Year: Yes When Did the Patient Quit Smoking/Using Tobacco: 06/21/14 Household Exposure Type: Cigarettes - Immunization History Most Recent Influenza Vaccination: 2013 Most Recent Tetanus Shot: utd Review of Systems All Other Systems Reviewed And Are Negative: Yes Constitutional: Positive: Fever, Chills, Fatigue Skin: Positive: Negative Eyes: Positive: Negative ENT: Positive: Nasal Discharge Respiratory: Positive: Negative Cardiovascular: Positive: Negative Gastrointestinal: Positive: Abdominal Pain, Vomiting, Diarrhea, Nausea, Other - is keeping down fluids well Genitourinary: Positive: Negative Motor: Positive: Negative Neurovascular: Positive: Negative Musculoskeletal: Positive: Negative Neurological: Positive: Negative Psychological: Positive: Negative Is Patient Immunocompromised?: No Physical Exam Triage Information Reviewed: Yes Appearance: No Pain Distress, Well-Nourished, Ill-Appearing - mild Vital Signs: Initial Vital Signs Temp 98.6 F 10/27/18 11:56 Pulse 75 10/27/18 11:56 Resp 18 10/27/18 11:56 BP 135/84 10/27/18 11:56 Pulse Ox 98 10/27/18 11:56 Vital Signs Reviewed: Yes Eye Exam: Normal Eyes: Positive: Conjunctiva Clear ENT Exam: Normal ENT: Positive: Normal ENT inspection, Hearing grossly normal, Nasal congestion, TMs normal, Uvula midline. Negative: Tonsillar swelling, Tonsillar exudate, Trismus, Muffled voice, Hoarse voice, Sinus tenderness Dental Exam: Normal Neck exam: Normal Neck: Positive: Supple, Nontender, No Lymphadenopathy Respiratory Exam: Normal Respiratory: Positive: Chest non-tender, Lungs clear, Normal breath sounds, No respiratory distress, No accessory muscle use Cardiovascular Exam: Normal Cardiovascular: Positive: RRR, No Murmur, Pulses Normal, Brisk Capillary Refill Abdominal Exam: Other Abdomen Description: Positive: No Organomegaly, Soft, Other: - generalized difuse discomfort. Negative: Nontender, CVA Tenderness (R), CVA Tenderness (L) , McBurney's Point Tenderness Bowel Sounds: Positive: Present Musculoskeletal Exam: Normal Musculoskeletal: Positive: Strength Intact, ROM Intact, No Edema Neurological Exam: Normal Neurological: Positive: Alert, Muscle Tone Normal Psychological Exam: Normal Skin Exam: Normal Course/Dx - Course Course Of Treatment: rest, advance diet slowly, tylenol ibuprofen for pain, zofran for nausea follow with pcp or to ed for worsening issues - Diagnoses Provider Diagnosis: Viral gastroenteritis Discharge - Sign-Out/Discharge Documenting (check all that apply): Patient Departure All imaging exams completed and their final reports reviewed: No Studies - Discharge Plan Condition: Stable Disposition: HOME Prescriptions: Ondansetron ODT TAB* [Zofran 4 MG Odt TAB*] 4 mg PO Q6H PRN #12 tab.odt PRN Reason: Nausea/Vomiting Patient Education Materials: Acute Nausea and Vomiting (ED), Viral Syndrome (ED ) Referrals: Fatoumata Hanna MD [Primary Care Provider] - If Needed - Billing Disposition and Condition Condition: STABLE Disposition: Home
== END 2018-10-27 13:24 | disposition home or self-care (01) ==
LOC: UCEAST 11:27
DX: A08.4 Viral intestinal infection, unspecified (principal); F17.210 Nicotine dependence, cigarettes, uncomplicated; Z88.2 Allergy status to sulfonamides; Z91.041 Radiographic dye allergy status
CPT/HCPCS: 81003; 99212; G0463

== ENCOUNTER 2019-01-12 09:10 | Emergency (ER) | payer BC ==
[2019-01-12 10:02] VITALS: BP 156/88
--- NOTE | 2019-01-12 10:46 | ED ---
Skin Complaint - HPI Summary HPI Summary: Patient is a 48-year-old female presents to the ED with a CC of 6-7 hx of intermittent swelling, redness and warmth to the R side of the R knee. She originally thought this was a spider bite, but spread to the lateral portion of the knee. Improves with ice. She states she area decreased in swelling and had some reduced erythema over the past few days, but returned yesterday. Patient with a history of right knee arthroplasty with chondroplasty of the patella and lateral release in 2014. No hardware in placed. Patient continues to be able to ambulate, flex and extend at the knee but states d/t the swelling will feel "stiff." Denies fevers, sweats or chills. No hx knee injury, MRSA or cellulitis. She states the knee tends to swell up intermittently, however denies any previous episodes of swelling with erythema and warmth - History of Current Complaint Chief Complaint: EDRashSkinAbscess Time Seen by Provider: 01/12/19 09:17 Stated Complaint: RT KNEE PAIN, SWELLING PER PT Hx Obtained From: Patient Hx Last Menstrual Period: hysterectomy Onset/Duration: Started Days Ago, Atraumatic Timing: Constant Onset Severity: Moderate Current Severity: Moderate Pain Intensity: 7 Pain Scale Used: 0-10 Numeric Skin Location: Discrete - R knee Character: Swelling, Redness, Painful Aggravating Symptom(s): Touch Alleviating Symptom(s): Nothing Associated Signs & Symptoms: Negative - Allergy/Home Medications Allergies/Adverse Reactions: Allergies Allergy/AdvReac Type Severity Reaction Status Date / Time Sulfa (Sulfonamide Allergy Unknown Verified 01/12/19 09:16 Antibiotics) Reaction Details IV contrast Allergy Mild Hives Uncoded 01/12/19 09:16 PMH/Surg Hx/FS Hx/Imm Hx Previously Healthy: Yes Endocrine/Hematology History: Reports: Hx Thyroid Disease Denies: Hx Anticoagulant Therapy, Hx Diabetes Cardiovascular History: Denies: Hx Hypertension, Hx Pacemaker/ICD - SPINAL STIMULATOR- NO MRI Respiratory History: Reports: Hx Asthma Denies: Hx Chronic Obstructive Pulmonary Disease (COPD) History: Denies: Hx Dialysis Musculoskeletal History: Reports: Other Musculoskeletal History - SPINAL CORD STIMULATOR Sensory History: Reports: Hx Contacts or Glasses - INSTRUCTS GIVEN, Hx Glaucoma - RIGHT EYE Denies: Hx Hearing Aid Opthamlomology History: Reports: Hx Contacts or Glasses - INSTRUCTS GIVEN, Hx Glaucoma - RIGHT EYE Neurological History: Reports: Other Neuro Impairments/Disorders - SPINAL CORD STIMULATOR IN PLACE- AFFECTING SCIATIC NERVE RIGHT SIDE Denies: Hx CVA - Surgical History Surgery Procedure, Year, and Place: partial Hysterectomy. RIGHT shoulder. BACK SURG - PRECISION PLUS SPINAL CORD STIMULATOR - NOT MRI SAFE. INSERTION OF SPINAL CORD STIMULATOR. Right Knee - arthoscopic. cholecystectomy Hx Anesthesia Reactions: No - Immunization History Hx Pertussis Vaccination: No Immunizations Up to Date: Yes Infectious Disease History: No Infectious Disease History: Denies: Hx Clostridium Difficile, Hx Hepatitis, Hx Human Immunodeficiency Virus (HIV), Hx of Known/Suspected MRSA, Hx Shingles, Hx Tuberculosis, Hx Known/ Suspected VRE, Hx Known/Suspected VRSA, History Other Infectious Disease, Traveled Outside the [place] in Last 30 Days - Family History Known Family History: Positive: Cardiac Disease - Social History Occupation: Employed Full-time Lives: With Family Alcohol Use: Occasionally Alcohol Amount: 2 times a week drinking 1-4 drinks Hx Substance Use: No Substance Use Type: Reports: None Hx Tobacco Use: Yes Smoking Status (MU): Light Every Day Tobacco Smoker Type: Cigarettes Amount Used/How Often: 1/2 PPD X 25 YEARS Length of Time of Smoking/Using Tobacco: 27 years Have You Smoked in the Last Year: Yes Review of Systems Negative: Fever, Chills, Fatigue, Skin Diaphoresis Negative: Palpitations, Chest Pain Negative: Shortness Of Breath, Cough Genitourinary: Negative Positive: no symptoms reported, see HPI Positive: Arthralgia - stiffness to the R knee - better with ambulation. Negative: Decreased ROM, Edema Positive: Other - erythema and warmth Neurological: Negative All Other Systems Reviewed And Are Negative: Yes Physical Exam Triage Information Reviewed: Yes Vital Signs On Initial Exam: Initial Vitals Temp Pulse Resp BP Pulse Ox 97.6 F 84 18 167/97 99 01/12/19 09:14 01/12/19 09:14 01/12/19 09:14 01/12/19 09:14 01/12/19 09:14 Vital Signs Reviewed: Yes Appearance: Positive: Well-Appearing, Well-Nourished Skin: Positive: Skin Color Reflects Adequate Perfusion, Other - erythema and warmth to the lateral side of the R knee Eyes: Positive: EOMI, SMITH, Conjunctiva Clear Neck: Positive: Supple Respiratory/Lung Sounds: Positive: Clear to Auscultation Cardiovascular: Positive: Pulses are Symmetrical in both Upper and Lower Extremities Musculoskeletal: Positive: Pain @ - right knee stiffness Neurological: Positive: Speech Normal Psychiatric: Positive: Affect/Mood Appropriate Diagnostics - Vital Signs Vital Signs Temp Pulse Resp BP Pulse Ox 01/12/19 09:58 98.4 F 84 19 156/88 95 01/12/19 09:14 97.6 F 84 18 167/97 99 - Laboratory Lab Statement: Any lab studies that have been ordered have been reviewed, and results considered in the medical decision making process. Course/Dx - Course Course Of Treatment: On physical examination, there is a small 2 cm in diameter erythematous area just to the lateral suprapatellar and one area to the lateral infrapatellar area without clear evidence of cellulitis. This area is slightly warmer to touch. No erythema or swelling to the posterior knee. No pain, erythema or swelling to the R calf. Flexion and extension intact. No evidence of joint involvement. This appears superficial to the R lateral portion of the knee. Discussed findings with patient. As she is higher risk for septic joint d/t her surgery (2014), she denies fevers, any complications with movement of the joint and only the lateral portion is involved. Also, patient states this has been fairly intermittent and improves with ice. She is given keflex for superifical infection/cellulitis, but is encouraged elevation and ice. She understands if she develops any worsening symptoms including fevers, sweats, chills, inability to flex or extend the knee, difficulty ambulating or worsening erythema or warmth to the knee, she'll return to the ED immediately. - Differential Diagnoses - Skin Complaint Differential Diagnoses: Other - Allergic reaction, cellulitis, inflammation, tendinitis - Diagnoses Provider Diagnoses: Cellulitis Discharge - Sign-Out/Discharge Documenting (check all that apply): Patient Departure Patient Received Moderate/Deep Sedation with Procedure: No - Discharge Plan Condition: Stable Disposition: HOME Prescriptions: Cephalexin CAP* [Keflex CAP*] 500 mg PO QID #28 cap MDD 4 Patient Education Materials: Cellulitis (ED) Referrals: Fatoumata Hanna MD [Primary Care Provider] - Additional Instructions: Keflex four times daily x 7 days As discussed, if you develop fevers, sweats, chills, swelling, worsening stiffness or redness - return to the ED ibuprofen 600mg three times daily x 3-4 days Follow up with your PCP or call Dr. corcoran if symptoms persist - Billing Disposition and Condition Condition: STABLE Disposition: Home
== END 2019-01-12 09:58 | disposition home or self-care (01) ==
LOC: ED 09:10
DX: L03.115 Cellulitis of right lower limb (principal); M25.661 Stiffness of right knee, not elsewhere classified; Z88.2 Allergy status to sulfonamides; Z91.041 Radiographic dye allergy status; F17.210 Nicotine dependence, cigarettes, uncomplicated
CPT/HCPCS: 99282

== ENCOUNTER 2019-12-04 12:57 | Emergency (ER) | payer BC ==
--- OUTSIDE RECORDS SUMMARY | 2019-12-04 13:04 | XMS REPORT | Summary of Care ---
:1970 Author Organization [facility] Address [address] [address] Care Team Providers Name Role Phone Fatoumata Hanna Primary Care Provider Reason for Visit Reason Comments Nasal Congestion Nasal and chest congestion,ear pain,chills for four weeks. Encounter Details Date Type Department Care Team Description 10/17/2019 Office Visit [place] [facility] Isacc Armas, Influenza ( Primary Dx); Medicine SMOKER; [address] [facility] [facility] Mild intermittent asthma with [place] [address] [place] [address] [phone] Allergies Active Allergy Reactions Severity Noted Date Comments Ct Dye Hives 01/15/2009 Sulfa Drugs Cross Reactors 11/17/2008 documented as of this encounter (statuses as of 10/17/2019) Medications Medication Sig Dispensed Refills Start Date End Date Status daily vitamin Oral Tab Take by mouth 0 Active DAILY. Levalbuterol HCl 1.25 0.5 mL by Does 0 10/01/2016 Active MG/0.5ML Inhalation not apply route Nebu Soln EVERY SIX HOURS NEEDED. Levocetirizine Take by mouth. 0 Active Dihydrochloride (XYZAL PO) albuterol HFA (PROAIR Take 2 Puffs by 1 Each 3 04/29/2019 Active HFA) 108 (90 Base) inhalation EVERY MCG/ACT Inhalation FOUR HOURS Aero Soln NEEDED (Take two puffs every 4 hours as needed for cough or wheeze). fluticasone (FLOVENT Take 2 Puffs by 1 Inhaler 0 04/29/2019 Active HFA) 110 MCG/ACT inhalation TWICE Inhalation Aerosol DAILY. levothyroxine Take 1 Tab by 90 Tab 3 05/27/2019 Active (SYNTHROID) 25 MCG mouth BEFORE Oral TabIndications: BREAKFAST. Hypothyroidism Alternate 2 pills with 1 pill every other day nystatin (MYCOSTATIN) Apply small 30 g 0 07/01/2019 Active 618093 UNIT/GM Apply amount twice externally Ointment daily Varenicline Tartrate 1 Take 1 Tab by 60 Tab 5 07/05/2019 Active MG Oral Tab mouth TWICE DAILY. estradiol (ESTRACE) Take 1 Tab by 90 Tab 1 08/05/2019 Active 0.5 MG Oral mouth DAILY. TabIndications: Postmenopausal HRT (hormone replacement therapy) oseltamivir (TAMIFLU) Take 1 Cap by 10 Cap 0 10/17/2019 10/22/2019 Active 75 MG Oral Cap mouth TWICE DAILY for 5 days. documented as of this encounter (statuses as of 10/17/2019) Active Problems Problem Noted Date Mild intermittent asthma with acute exacerbation 10/17/2019 Status post cholecystectomy 05/06/2019 Overview: 06/09 Chronic RUQ pain 05/18/2018 Overview: Added automatically from request for surgery [id number] Knee pain, right 07/09/2014 Hypothyroid 04/23/2013 S/P partial hysterectomy 04/23/2013 Overview: Ovaries intact; Cervix out Herniated nucleus pulposus, L5-S1, left 12/19/2011 S/P discectomy for herniated nucleus pulposus 12/19/2011 CHRONIC NECK PAIN 11/17/2008 CHRONIC BACK PAIN 11/17/2008 SMOKER 11/17/2008 documented as of this encounter (statuses as of 10/17/2019) Immunizations Name Administration Dates Next Due TDAP Vaccine 07/02/2014 Tuberculin Skin Test 10/11/1994 documented as of this encounter Social History Tobacco Use Types Packs/Day Years Used Date Current Every Day Smoker Cigarettes 0.5 Smokeless Tobacco: Never Used Comments: trying to quit, smokes so hard to quit Alcohol Use Drinks/Week oz/Week Comments Yes occ Sex Assigned at Date Recorded Not on file Job Start Date Occupation Industry Not on file Not on file Not on file Travel History Travel Start Travel End No recent travel history available. documented as of this encounter Last Filed Vital Signs Vital Sign Reading Time Taken Comments Blood Pressure - - Pulse 77 10/17/2019 11:29 AM EST Temperature 37.6 10/17/2019 11:29 AM EST C (99.6 F) Respiratory Rate - - Oxygen Saturation 95% 10/17/2019 11:29 AM EST Inhaled Oxygen Concentration - - Weight - - Height - - Body Mass Index - - documented in this encounter Patient Instructions Patient InstructionsIsacc Armas MD - 10/17/2019 11:20 AM ESTInfluenza Use tamiflu twice daily 5 days Use alleve d 1-2 twice daily Use tylenol 325 mg 2 three times daily As needed Lots of fluids Use a mask and wash hands a lot This is a good time to quit smoking talk to spouse about Oct 23 as a quit date for both of you 11: 52 AM EST documented in this encounter Progress Notes Isacc Armas MD - 10/17/2019 11:20 AM EST SUBJECTIVE: July Newton is a 49-y.o. female who present complaining of flu-like symptoms: fevers, chills, myalgias, congestion, sore throat and cough for 2 days. Denies dyspnea or wheezing. She smokes 5-10 per day her spouse also smokes she has not smoked for 3-5 days OBJECTIVE: Appears moderately ill but not toxic; temperature as noted in vitals. Ears normal. Throat and pharynx normal. Neck supple. No adenopathy in the neck. Sinuses non tender. The chest is clear. ASSESSMENT: Influenza Tobacco use I spent 6 minutes in direct face to face counseling with the patient regarding smoking cessation. A plan was developed with the patient to cut down cigarette use over the next 1 weeks. A mcc goal to set a quit date was discussed with patient. Pharmacologic and behavioral strategies for tobacco cessation were dicussed at length. ([id number]). PLAN: tamiflu twice daily 5 day Symptomatic therapy suggested: rest, increase fluids, OTC acetaminophen and call prn if symptoms persist or worsen. Call or return to clinic prn if these symptoms worsen or fail to improve as anticipated. Patient Instructions Influenza Use tamiflu twice daily 5 days Use alleve d 1-2 twice daily Use tylenol 325 mg 2 three times daily As needed Lots of fluids Use a mask and wash hands a lot This is a good time to quit smoking talk to spouse about Oct 23 as a quit date for both of you documented in this encounter Plan of Treatment Date Type Specialty Care Team Description 11/25/2019 Lab Internal Medicine 12/02/2019 Office Visit Internal Medicine Fatoumata Hanna MD [address] [id number] [phone] 05/18/2020 Ancillary Procedure Radiology 05/25/2020 Office Visit General Surgery Karlie Amato MD [address] [id number] Health Maintenance Due Date Last Done Comments PNEUMOCOCCAL 0-64 YRS (1 of 01/28/1976 1 - PPSV23) INFLUENZA VACCINE (#1) 2019 MAMMOGRAM (SCREENING) 05/13/2020 05/13/2019, 07/20/2015, 07/07/2014, Additional history exists DEPRESSION SCREENING 07/01/2020 07/01/2019 DIABETES SCREENING 07/29/2020 07/29/2019, 07/29/2019, 05/06/2019, Additional history exists LIPID DISORDER SCREENING 05/06/2024 05/06/2019, 10/31/2014, 12/21/2011 DTaP/Tdap/Td Vaccines (2 - 07/02/2024 07/02/2014 Tdap) Colonoscopy 12/07/2025 12/07/2016 HEPATITIS A IMMUNIZATION Aged Out No longer eligible SERIES based on patient's age to complete this topic HPV IMMUNIZATION SERIES Aged Out No longer eligible based on patient's age to complete this topic MENINGOCOCCAL VACCINE IMM Aged Out No longer eligible based on patient's age to complete this topic documented as of this encounter Results Not on filedocumented in this encounter Visit Diagnoses Diagnosis SMOKER Tobacco use disorder Mild intermittent asthma with acute exacerbation Unspecified asthma, with exacerbation Influenza Influenza with other respiratory manifestations documented in this encounter Insurance Payer Benefit Plan / Subscriber ID Effective Dates Phone Address Type Group [facility] [employer] ACCESS xxxxxxxxxxxx Effective for all [employer] PPO dates Guarantor Name Account Type Relation to Date of Phone Billing Patient Address Karen Newtonjacoby Morrison Personal/Family 1970 [phone] [address] (Home) [place], [place] [phone] (Work) documented as of this encounter
--- OUTSIDE RECORDS SUMMARY | 2019-12-04 13:04 | XMS REPORT | Summary of Care ---
:1970 Author Organization [facility] Address [address] [address] Care Team Providers Name Role Phone Fatoumata Hanna Primary Care Provider Reason for Visit Reason Comments Follow Up follow up on labs Encounter Details Date Type Department Care Team Description 12/02/2019 Office Visit [place] [facility] Fatoumata Hanna MD Elevated blood sugar (Primary Dx); Medicine [address] Hypothyroidism, unspecified type; [address] [place] [address] Elevated BP without [place] [address] [phone] Allergies Active Allergy Reactions Severity Noted Date Comments Ct Dye Hives 01/15/2009 Sulfa Drugs Cross Reactors 11/17/2008 documented as of this encounter (statuses as of 12/02/2019) Medications Medication Sig Dispensed Refills Start End Date Status Date daily vitamin Oral Take by mouth 0 Active Tab DAILY. Levalbuterol HCl 0.5 mL by Does 0 Active 1.25 MG/0.5ML not apply 6 Inhalation Nebu Soln route EVERY SIX HOURS NEEDED. albuterol HFA Take 2 Puffs 1 Each 3 Active (PROAIR HFA) 108 (90 by inhalation 9 Base) MCG/ACT EVERY FOUR Inhalation Aero Soln HOURS NEEDED (Take two puffs every 4 hours as needed for cough or wheeze). fluticasone (FLOVENT Take 2 Puffs 1 Inhaler 0 Active HFA) 110 MCG/ACT by inhalation 9 Inhalation Aerosol TWICE DAILY. levothyroxine Take 1 Tab by 90 Tab 3 Active (SYNTHROID) 25 MCG mouth BEFORE 9 Oral TabIndications: BREAKFAST. Hypothyroidism Alternate 2 pills with 1 pill every other day estradiol (ESTRACE) Take 1 Tab by 90 Tab 1 Active 0.5 MG Oral mouth DAILY. 9 TabIndications: Postmenopausal HRT (hormone replacement therapy) levothyroxine Take 50 mcg by 0 Active (SYNTHROID) 50 MCG mouth BEFORE Oral Tab BREAKFAST. Levocetirizine Take by 0 12/02/19 Discontinued Dihydrochloride mouth. 20 (Patient stopped (XYZAL PO) the medication) nystatin Apply small 30 g 0 12/02/19 Discontinued (MYCOSTATIN) 819542 amount twice 07 12 (Patient stopped UNIT/GM Apply daily the medication) externally Ointment Varenicline Tartrate Take 1 Tab by 60 Tab 5 12/02/19 Discontinued 1 MG Oral Tab mouth TWICE 20 (Patient stopped DAILY. the medication) guaiFENesin-codeine Take 5-10 mL 473 mL 1 12/02/19 Discontinued (ROBITUSSIN AC) by mouth EVERY 20 (Patient stopped 100-10 MG/5ML Oral FOUR HOURS the medication) Solution NEEDED (cough). Max Daily Amount: 60 mL. documented as of this encounter (statuses as of 12/02/2019) Active Problems Problem Noted Date Mild intermittent asthma with acute exacerbation 10/17/2019 Status post cholecystectomy 05/06/2019 Overview: 06/09 Chronic RUQ pain 05/18/2018 Overview: Added automatically from request for surgery [id number] Knee pain, right 07/09/2014 Hypothyroid 04/23/2013 S/P partial hysterectomy 04/23/2013 Overview: Ovaries intact; Cervix out Herniated nucleus pulposus, L5-S1, left 12/19/2011 S/P discectomy for herniated nucleus pulposus 12/19/2011 CHRONIC NECK PAIN 11/17/2008 CHRONIC BACK PAIN 11/17/2008 SMOKER 11/17/2008 documented as of this encounter (statuses as of 12/02/2019) Immunizations Name Administration Dates Next Due TDAP [...] Sign Reading Time Taken Comments Blood Pressure 142/88 12/02/2019 1:06 PM EST Pulse 93 12/02/2019 1:06 PM EST Temperature - - Respiratory Rate - - Oxygen Saturation 97% 12/02/2019 1:06 PM EST Inhaled Oxygen Concentration - - Weight 96.8 kg (213 lb 4.8 oz) 12/02/2019 1:06 PM EST Height 177.8 cm (5' 10") 12/02/2019 1:06 PM EST Body Mass Index 30.61 12/02/2019 1:06 PM EST documented in this encounter Patient Instructions Patient InstructionsCreFatoumata lara MD - 12/02/2019 1:20 PM ESTPlan To avoid diabetes - Diet and exercise - 10 lbs weight loss Blood pressure - Get 1-2 / week - When relaxed - documented in this encounter Progress Notes Fatoumata Hanna MD - 12/02/2019 1:20 PM EST NAME:Juyl Newton 1970: 1970 ENC Date: 12/02/2019 CC: Chief Complaint Patient presents with Follow Up follow up on labs July Newton is a 49-y.o. female 1. HRT - doing well on it- 2. Elevated blood sugar - Borderline - discussed- 3. Smoking - diuscssed hs tried chantix - / wellbutrin- have been tried - Current Outpatient Medications Medication Sig albuterol HFA (PROAIR HFA) 108 (90 Base) MCG/ACT Inhalation Aero Soln Take 2 Puffs by inhalation EVERY FOUR HOURS NEEDED (Take two puffs every 4 hours as needed for cough or wheeze). daily vitamin Oral Tab Take by mouth DAILY. estradiol (ESTRACE) 0.5 MG Oral Tab Take 1 Tab by mouth DAILY. fluticasone (FLOVENT HFA) 110 MCG/ACT Inhalation Aerosol Take 2 Puffs by inhalation TWICE DAILY. Levalbuterol HCl 1.25 MG/0.5ML Inhalation Nebu Soln 0.5 mL by Does not apply route EVERY SIX HOURS NEEDED. levothyroxine (SYNTHROID) 25 MCG Oral Tab Take 1 Tab by mouth BEFORE BREAKFAST. Alternate 2 pills with 1 pill every other day levothyroxine (SYNTHROID) 50 MCG Oral Tab Take 50 mcg by mouth BEFORE BREAKFAST. No current facility-administered medications for this visit. Patient Active Problem List Diagnosis Date Noted Mild intermittent asthma with acute exacerbation 10/17/2019 Status post cholecystectomy 05/06/201906/09 Chronic RUQ pain 05/18/2018 Added automatically from request for surgery [id number] Knee pain, right 07/09/2014 Hypothyroid 04/23/2013 S/P partial hysterectomy 04/23/2013 Ovaries intact; Cervix out Herniated nucleus pulposus, L5-S1, left 12/19/2011 S/P discectomy for herniated nucleus pulposus 12/19/2011 CHRONIC NECK PAIN 11/17/2008 CHRONIC BACK PAIN 11/17/2008 SMOKER 11/17/2008 Family History Problem Relation Age of Onset Breast Cancer Other 78 great aunt No cardiopulmonary symptoms No upper or lower GI complaints No urinary tract symptoms. No bruising/ bleeding. No neurological complaints . No insomnia.+ . Social History Tobacco Use Smoking status: Current Every Day Smoker Packs/day: 0.50 Types: Cigarettes Smokeless tobacco: Never Used Tobacco comment: trying to quit, smokes so hard to quit Substance Use Topics Alcohol use: Yes Comment: occ Drug use: No Results for orders placed or performed in visit on 11/25/19 THYROID STIMULATING HORMONE Result Value Ref Range TSH 4.93 (H) 0.47 - 4.68 uIu/ml GLYCOHEMOGLOBIN A1C Result Value Ref Range Glycohemoglobin A1C 5.8 (H) <=5.6 % BASIC METABOLIC PANEL Result Value Ref Range Glucose 109 (H) 70 - 99 mg/dl BUN 17 7 - 17 mg/dl Creatinine 0.7 0.7 - 1.2 mg/dl Sodium 137 134 - 145 mmol/L Potassium 4.1 3.5 - 5.1 mmol/L Chloride 106 98 - 107 mmol/L CO2 23 22 - 30 mmol/L Calcium 8.9 8.3 - 10.1 mg/dl eGFR >60 See Interpretation Below ml/min/1.73ml Sq BUN/Creatinine Ratio 24 (H) 6 - 22 RATIO Anion Gap 8 3 - 11 mmol/L OBJECTIVE: BP (!) 142/88 | Pulse 93 | Ht 5' 10" (1.778 m) | Wt 213 lb 4.8 oz (96.8 kg) | SpO2 97% | BMI 30.61 kg/m . H A/P ICD-9-CM ICD-10-CM 1. Elevated blood sugar 790.29 R73.9 BASIC METABOLIC PANEL GLYCOHEMOGLOBIN A1C 2. Hypothyroidism, unspecified type 244.9 E03.9 THYROID STIMULATING HORMONE 3. Elevated BP without diagnosis of hypertension 796.2 R03.0 Patient Instructions Plan To avoid diabetes - Diet and exercise - 10 lbs weight loss Blood pressure - Get 1-2 / week - When relaxed - AUTHOR: Fatoumata Hanna MD 13:58 12/02/2019 documented in this encounter Plan of Treatment Date Type Specialty Care Team Description 05/18/2020 Ancillary Procedure Radiology 05/25/2020 Office Visit General Surgery Karlie Amato MD [address] [address] Name Type Priority Associated Diagnoses Order Schedule THYROID STIMULATING HORMONE Lab Routine Hypothyroidism, Expected: 2019 unspecified type (Approximate), Expires: 05/30/2020 BASIC METABOLIC PANEL Lab Routine Elevated blood sugar Expected: 12/02/2019 (Approximate), Expires: 05/30/2020 GLYCOHEMOGLOBIN A1C Lab Routine Elevated blood sugar Expected: 12/02/2019 (Approximate), Expires: 05/30/2020 Health Maintenance Due Date Last Done Comments MAMMOGRAM (SCREENING) 05/13/2020 05/13/2019, 07/20/2015, 07/07/2014, Additional history exists DEPRESSION SCREENING 07/01/2020 07/01/2019 DIABETES SCREENING 11/25/2020 11/25/2019, 11/25/2019, 07/29/2019, Additional history exists INFLUENZA VACCINE (#1) 2020 Postponed from 06/23/2019 (Patient refused) PNEUMOCOCCAL 0-64 YRS (1 of 12/02/2020 Postponed from 1 - PPSV23) 01/28/1976 (Patient refused) LIPID DISORDER SCREENING 05/06/2024 05/06/2019, 10/31/2014, 12/21/2011 [...] filedocumented in this encounter Visit Diagnoses Diagnosis Elevated blood sugar Other abnormal glucose Hypothyroidism, unspecified type Elevated BP without diagnosis of hypertension documented in this encounter Insurance Payer Benefit Plan / Subscriber ID Effective Dates Phone Address Type Group [facility] ACCESS xxxxxxxxxxxx Effective for all [facility] PPO dates Guarantor Name Account Type Relation to Date of Phone Billing Patient Address July Newton Personal/Family 1970 [address] (Home) [place], [place] [phone] (Work) documented as of this encounter
[2019-12-04 13:25] VITALS: BP 131/85
--- NOTE | 2019-12-04 13:59 | UC ---
Head Injury HPI - HPI Summary HPI Summary: 49-year-old female who was at her house last evening when she opened the back door and a large chunk of ice fell from her roof approximately 3 feet hitting her in the left side top of her head causing a small laceration. No loss of consciousness however today she feels "off" and just doesn't feel like her normal self. Mild nausea but no vomiting. - History Of Current Complaint Chief Complaint: UCHeadInjury Stated Complaint: HIT IN THE HEAD, DIZZY Time Seen by Provider: 12/04/19 13:40 Hx Obtained From: Patient Hx Last Menstrual Period: hysterectomy ?: No Onset/Duration: Sudden Onset, Other - Happened last evening. Severity Currently: Mild Severity Initially: Moderate Pain Intensity: 8 Character: Dull Aggravating Factor(s): Nothing Alleviating Factor(s): Nothing Associated Signs And Symptoms: Positive: Nausea. Negative: LOC (Time In Secs./ Mins/Hrs), LOC Duration Unknown, Confusion, Memory Loss, Seizure, Epistaxis, Neck Pain, Vomiting - Allergies/Home Medications Allergies/Adverse Reactions: Allergies Allergy/AdvReac Type Severity Reaction Status Date / Time Sulfa (Sulfonamide Allergy Unknown Verified 12/04/19 13:26 Antibiotics) Reaction Details IV contrast Allergy Mild Hives Uncoded 12/04/19 13:26 Home Medications: Home Medications Estradiol (NF) 1 tab PO DAILY 12/04/19 [History Confirmed 12/04/19] PMH/Surg Hx/FS Hx/Imm Hx Previously Healthy: Yes Endocrine History: Thyroid Disease Respiratory History: Asthma Other History Of: Negative For: Anticoagulant Therapy - Surgical History Surgical History: Yes Surgery Procedure, Year, and Place: partial Hysterectomy. RIGHT shoulder. BACK SURG - PRECISION PLUS SPINAL CORD STIMULATOR - NOT MRI SAFE. INSERTION OF SPINAL CORD STIMULATOR. Right Knee - arthoscopic. cholecystectomy - Family History Known Family History: Positive: Cardiac Disease - Social History Occupation: Employed Full-time Lives: With Family Alcohol Use: Occasionally Alcohol Amount: 2 times a week drinking 1-4 drinks Substance Use Type: None Smoking Status (MU): Light Every Day Tobacco Smoker Type: Cigarettes Amount Used/How Often: 1/2 PPD X 25 YEARS Length of Time of Smoking/Using Tobacco: 27 years Have You Smoked in the Last Year: Yes When Did the Patient Quit Smoking/Using Tobacco: 06/21/14 Household Exposure Type: Cigarettes - Immunization History Most Recent Influenza Vaccination: 2013 Most Recent Tetanus Shot: utd Review of Systems All Other Systems Reviewed And Are Negative: Yes Skin: Positive: Other - Patient sustained a small superficial laceration to the top of her head last evening. Is Patient Immunocompromised?: No Physical Exam Triage Information Reviewed: Yes Appearance: Well-Appearing, No Pain Distress, Well-Nourished Vital Signs: Initial Vital Signs Temp 98 F 12/04/19 13:23 Pulse 92 12/04/19 13:23 Resp 16 12/04/19 13:23 BP 131/85 12/04/19 13:23 Pulse Ox 98 12/04/19 13:23 Vital Signs Reviewed: Yes Eyes: Positive: Conjunctiva Clear - PERRLA, EOMI ENT: Positive: Pharynx normal, TMs normal, Uvula midline Neck: Positive: Supple, Nontender - C-spine nontender, No Lymphadenopathy Respiratory: Positive: Chest non-tender, Lungs clear, Normal breath sounds, No respiratory distress, No accessory muscle use Cardiovascular: Positive: RRR, No Murmur, Pulses Normal, Brisk Capillary Refill Abdomen Description: Positive: Nontender, No Organomegaly, Soft. Negative: CVA Tenderness (R), CVA Tenderness (L), Distended, Guarding, Hepatomegaly, McBurney' s Point Tenderness, Splenomegaly Bowel Sounds: Positive: Present Musculoskeletal: Positive: Strength Intact, ROM Intact, Other: - Good arm and leg strength against resistance, full range of motion. Skull is intact. Neurological: Positive: Alert, Muscle Tone Normal - Reflexes +2 at the knee, Psychological: Positive: Normal Response To Family, Age Appropriate Behavior Skin: Positive: Other - Approximate 1.0 cm laceration to the left skull just inside the hairline. No bleeding. Tender on palpation but skull is intact. Head Injury Course/Dx - Course Course Of Treatment: CT brain without contrast:FINDINGS: The ventricles, cisterns and sulci are within normal limits. No significant focal abnormality or mass effect is seen. There is no evidence for hemorrhage. The visualized portion of the paranasal sinuses and mastoid air cells appear clear. IMPRESSION: NO EVIDENCE FOR ACUTE INTRACRANIAL ABNORMALITY. The patient has been comfortable here. We discussed reasons to go to the emergency room for further treatment which would be change in normal mental status or vomiting. 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 I also advised her to limit screen time whether his computer or smartphone and nothing stronger than Tylenol for headache. No alcohol. No follow-up with her primary care provider if no improvement by Monday. - Differential Dx/Diagnosis Provider Diagnosis: Concussion, Laceration of head Discharge ED - Sign-Out/Discharge Documenting (check all that apply): Patient Departure All imaging exams completed and their final reports reviewed: Yes - Discharge Plan Condition: Fair Disposition: HOME Patient Education Materials: Laceration (DC), Concussion (ED) Forms: *Work Release Referrals: Fatoumata Hanna MD [Primary Care Provider] - Additional Instructions: Nothing stronger than Tylenol for headache or pain. Definite follow-up with your primary care provider if no improvement in 3 or 4 days. Avoid use of computers are Smartt phone to give your eyes and brain a rest. - Billing Disposition and Condition Condition: FAIR Disposition: Home
== END 2019-12-04 14:59 | disposition home or self-care (01) ==
LOC: UCEAST 12:57
DX: S01.01XA Laceration without foreign body of scalp, initial encounter (principal); S06.0X0A Concussion without loss of consciousness, initial encounter; J45.909 Unspecified asthma, uncomplicated; F17.210 Nicotine dependence, cigarettes, uncomplicated; Z88.2 Allergy status to sulfonamides; Z91.041 Radiographic dye allergy status; W20.8XXA Other cause of strike by thrown, projected or falling object, initial encounter; Y92.9 Unspecified place or not applicable
CPT/HCPCS: 70450; 99211; G0463

== ENCOUNTER 2020-09-24 12:41 | Observation (INO) ==
[2020-09-24 14:51] LABS: ABS Basophils 0.1 10^3/ul (0-0.2); ABS Eosinophils 0.4 10^3/ul (0-0.6); ABS Lymphocytes 3.8 10^3/ul (1.0-4.8); ABS Monocytes 0.6 10^3/ul (0-0.8); ABS Neutrophils 7.1 10^3/ul (1.5-7.7); Eosinophil % 3.3 %; Hematocrit 46 % (35-47); Hemoglobin 15.3 g/dL (12.0-16.0); Lymphocyte % 31.8 %; Mean Corpuscular HGB Conc 34 g/dL (31-36); Mean Corpuscular Hemoglobin 33 pg (27-31); Mean Corpuscular Volume 97 fL (80-97); Mean Platelet Volume 9.1 fL (7.4-10.4); Platelet Count 219 10^3/uL (150-450); Red Blood Count 4.71 10^6 /uL (3.70-4.87); Red Cell Distribution Width 13 % (10-15)
[2020-09-24 14:57] LABS: INR 0.97 (0.82-1.09)
[2020-09-24 15:04] LABS: Albumin 4.3 g/dL (3.2-5.2); Albumin/Globulin Ratio 1.3 (1-3); BUN/Creatinine Ratio 23.5 (8-20); C Reactive Protein 3.34 mg/L (<8.01); Calcium 9.3 mg/dL (8.6-10.3); EGFR African American 110.8 (>60); EGFR Non-African American 91.6 (>60); Globulin 3.2 g/dL (2-4); Potassium 3.7 mmol/L (3.5-5.0); Total Bilirubin 0.5 mg/dL (0.2-1.0); Total Protein 7.5 g/dL (6.4-8.9)
[2020-09-24] MEDS ORDERED: guaiFENesin/CODIENE 100mg/10mg 5 ML UDC PO PRN (17:15)
[2020-09-24] MEDS ORDERED: Albuterol HFA INHALER 8 gm MDI INH PRN (20:22)
[2020-09-24] MEDS ORDERED: Mometasone 220 MCG MDI INH SCH (21:00)
[2020-09-24] MEDS: Sucralfate 1 gm SUSP 1 GM/10 ML UDC PO SCH (22:24)
[2020-09-25 07:20] LABS: ABS Eosinophils 0.2 10^3/ul (0-0.6); ABS Lymphocytes 2.8 10^3/ul (1.0-4.8); ABS Monocytes 0.7 10^3/ul (0-0.8); ABS Neutrophils 4.8 10^3/ul (1.5-7.7); Eosinophil % 2.9 %; Hematocrit 43 % (35-47); Hemoglobin 14.4 g/dL (12.0-16.0); Lymphocyte % 32.9 %; Mean Corpuscular HGB Conc 34 g/dL (31-36); Mean Corpuscular Hemoglobin 33 pg (27-31); Mean Corpuscular Volume 97 fL (80-97); Mean Platelet Volume 9.2 fL (7.4-10.4); Platelet Count 183 10^3/uL (150-450); Red Cell Distribution Width 13 % (10-15); White Blood Count 8.6 10^3/uL (3.5-10.8)
[2020-09-25 07:26] LABS: Calcium 9.2 mg/dL (8.6-10.3)
[2020-09-25 07:32] LABS: BUN/Creatinine Ratio 23.5 (8-20); EGFR African American 90.6 (>60); EGFR Non-African American 74.8 (>60); HDL Cholesterol 39.5 mg/dL
[2020-09-25 08:23] LABS: TSH Ultra Thyroid Stim Horm 2.4 mcIU/mL (0.34-5.60)
[2020-09-25] MEDS: Sucralfate 1 gm SUSP 1 GM/10 ML UDC PO SCH ×2 (08:41→13:21)
[2020-09-25] MEDS ORDERED: Leflunomide 20 MG TABLET (NF) PO SCH (09:00)
[2020-09-25] MEDS ORDERED: Vitamin THERAPEUTIC TAB PO SCH (09:00)
[2020-09-25] MEDS ORDERED: Aspirin EC 81 mg TAB.EC (enteric coated) PO SCH (09:00)
[2020-09-25 13:38] VITALS: BP 127/65
== END 2020-09-25 15:32 | disposition home or self-care (01) ==
LOC: ED 12:41 → MEDTELE 12:41
PROVIDERS: ADMIT Internal Medicine; ATTEND Internal Medicine

== ENCOUNTER 2023-09-04 12:32 | Observation (INO) ==
[2023-09-04 13:46] LABS: ABS Basophils 0.1 10^3/uL (0.0-0.1); ABS Eosinophils 0.5 10^3/uL (0.0-0.5); ABS Lymphocytes 3.5 10^3/uL (1.0-4.8); ABS Monocytes 0.8 10^3/uL (0.0-0.9); ABS Neutrophils 6.4 10^3/uL (1.5-7.6); ABS Nucleated RBC 0.02 10^3/ul; Eosinophil % 4.4 %; Hematocrit 44.2 % (35-45); Hemoglobin 14.8 g/dL (11.5-14.3); Lymphocyte % 30.9 %; Mean Corpuscular Hemoglobin 32.1 pg (27-33); Mean Corpuscular Hgb Conc 33.6 g/dL (31-36); Mean Corpuscular Volume 95.7 fL (80-97); Mean Platelet Volume 9.1 fL (7.5-11.2); Nucleated Red Blood Cells % 0.2 %/100WBC (0.0-0.8); Platelet Count 286 10^3/uL (150-450); Red Blood Count 4.61 10^6/uL (3.63-4.92); White Blood Count 11.2 10^3/uL (3.8-11.8)
[2023-09-04 14:17] LABS: Albumin 4.5 g/dL (3.2-5.2); Albumin/Globulin Ratio 1.5 (1-3); Calcium 9.9 mg/dL (8.6-10.3); Creatinine, Serum 0.75 mg/dL (0.51-0.95); Globulin 3.1 g/dL (2-4); Potassium 4.4 mmol/L (3.5-5.0); Total Bilirubin 0.3 mg/dL (0.2-1.0); Total Protein 7.6 g/dL (6.4-8.9); eGFR CKD-EPI 95.1 (>60)
[2023-09-04 14:50] LABS: TSH Ultra Thyroid Stim Horm 3.11 mcIU/mL (0.34-5.60)
[2023-09-04 14:57] LABS: HDL Cholesterol 53.8 mg/dL
[2023-09-04] MEDS ORDERED: Enoxaparin 40 MG/0.4 ML SYR SUBCUT SCH (18:00)
[2023-09-04] MEDS ORDERED: Lactated Ringers 1000 ml BAG 1,000 ML IV ONE (20:02)
[2023-09-04] MEDS ORDERED: Levalbuterol 1.25MG/0.5ML NEB.SOL INH PRN (20:19)
[2023-09-05] MEDS ORDERED: Mometasone/Formoter 200/5 MDI INH SCH (07:00)
[2023-09-05 15:04] VITALS: BP 105/70
== END 2023-09-05 17:35 | disposition home or self-care (01) ==
LOC: EDHOLD 12:32 → ED 12:32 → SUATTDRO 16:30 → MEDTELE 17:32
PROVIDERS: ADMIT Internal Medicine; ATTEND Internal Medicine

== ENCOUNTER 2023-12-03 08:28 | Inpatient (IN) ==
[2023-12-03 09:15] LABS: Hematocrit 44.3 % (35-45); Hemoglobin 15.2 g/dL (11.5-14.3); Mean Corpuscular Hemoglobin 31.6 pg (27-33); Mean Corpuscular Hgb Conc 34.3 g/dL (31-36); Mean Corpuscular Volume 92.3 fL (80-97); Mean Platelet Volume 8.7 fL (7.5-11.2); Platelet Count 278 10^3/uL (150-450); Red Cell Distribution Width 13.2 % (12-17); White Blood Count 19.6 10^3/uL (3.8-11.8)
[2023-12-03] MEDS: Lactated Ringers 1000 ml BAG 1,000 ML IV ONE ×2 (09:24→22:19)
[2023-12-03] MEDS: Ondansetron 4 mg VIAL 2 MG/ML 2 ml VIAL IV ONE (09:25)
[2023-12-03] MEDS: Morphine 4 MG/ML VIAL (1 ml) IV ONE ×2 (09:25→11:08)
[2023-12-03 09:34] LABS: Albumin 4.3 g/dL (3.2-5.2); Albumin/Globulin Ratio 1.3 (1-3); C Reactive Protein 101.17 mg/L (<8.01); Calcium 9.4 mg/dL (8.6-10.3); Creatinine, Serum 0.8 mg/dL (0.51-0.95); Globulin 3.2 g/dL (2-4); Potassium 3.7 mmol/L (3.5-5.0); Total Protein 7.5 g/dL (6.4-8.9)
[2023-12-03] MEDS: Lactated Ringers SEPSIS* BAG 2,060 ML IV ONE (09:58)
[2023-12-03 10:09] LABS: ABS Basophils 0.1 10^3/uL (0.0-0.1); ABS Eosinophils 0.2 10^3/uL (0.0-0.5); ABS Lymphocytes 2.6 10^3/uL (1.0-4.8); ABS Monocytes 1.9 10^3/uL (0.0-0.9); ABS Neutrophils 14.8 10^3/uL (1.5-7.6); Eosinophil % 0.8 %; Lymphocyte % 13.4 %
[2023-12-03] MEDS: Iodixanol (CONTRAST) 320 MG/ML 100 ML SDV IV ONE (10:14)
[2023-12-03] MEDS: Piperacillin/Tazobac 3.375 BAG 3.375 GM/100 ML BAG IV ONE (10:43)
[2023-12-03 11:27] LABS: Urine Appearance Extra Turbid; Urine Bilirubin Negative (Negative); Urine Blood 2+ (Negative); Urine Glucose Negative (Negative); Urine Ketones Negative (Negative); Urine Nitrite 2+ (Negative); Urine Protein 1+ (>=30 mg/dL) (Negative); Urine Specific Gravity 1.041 (1.002-1.030); Urine Urobilinogen Negative (Negative)
[2023-12-03 11:36] LABS: Urine Bacteria 2+ /HPF (Absent); Urine Red Blood Cell 3+(>10/hpf) /HPF (0-Trace); Urine White Blood Cell 3+(>20/hpf) /HPF (0-Trace)
[2023-12-03 11:38] LABS: Urine Color Light-Yellow
[2023-12-03] MEDS ORDERED: Ondansetron 4 mg VIAL 2 MG/ML 2 ml VIAL IV PRN (11:38)
[2023-12-03] MEDS ORDERED: Dextrose 50% Syringe 50 ml 25 GM/50 ML SYRINGE IV PUSH PRN (11:43)
[2023-12-03] MEDS: NS 0.9% 1000 ml BAG 1,000 ML IV SCH ×2 (12:53→16:58)
[2023-12-03] MEDS ORDERED: Lidocaine 2% PF 5 ML VIAL ONE (14:57)
[2023-12-03] MEDS ORDERED: Midazolam 2 mg/2 ml VIAL 1 mg/ml 2 ml VIAL (2 mg) ONE (14:57)
[2023-12-03] MEDS ORDERED: fentaNYL 100 mcg/2 ml 50 MCG/ML VIAL ONE (14:57)
[2023-12-03] MEDS ORDERED: Propofol 10 MG/ML 20 ML BTL ONE ×2 (14:57→15:21)
[2023-12-03] MEDS ORDERED: Iohexol 180 (CONTRAST) 10 ML SDV IV ONE (14:59)
[2023-12-03] MEDS: cefTRIAXone 1 gm/50 mL D5W 1 GM/50 ML BAG IV SCH (16:35)
[2023-12-03] MEDS: Cefepime 1 GM in Dextrose 1 GM/50 ML BAG IV SCH (22:31)
[2023-12-03] MEDS ORDERED: Cefepime ADVAN 1 GM in NS 0.9% 50 ML 50 ML IVPB SCH (23:00)
[2023-12-04 05:58] LABS: ABS Basophils 0.1 10^3/uL (0.0-0.1); ABS Eosinophils 0.3 10^3/uL (0.0-0.5); ABS Lymphocytes 2.1 10^3/uL (1.0-4.8); ABS Monocytes 1.3 10^3/uL (0.0-0.9); ABS Neutrophils 9.9 10^3/uL (1.5-7.6); ABS Nucleated RBC 0.01 10^3/ul; Eosinophil % 2.2 %; Hematocrit 35.6 % (35-45); Lymphocyte % 15.2 %; Mean Corpuscular Hemoglobin 31.8 pg (27-33); Mean Corpuscular Hgb Conc 33.9 g/dL (31-36); Mean Corpuscular Volume 93.9 fL (80-97); Platelet Count 188 10^3/uL (150-450); Red Blood Count 3.79 10^6/uL (3.63-4.92); Red Cell Distribution Width 13.5 % (12-17); White Blood Count 13.6 10^3/uL (3.8-11.8)
[2023-12-04 06:12] LABS: Calcium 8.3 mg/dL (8.6-10.3); Creatinine, Serum 0.91 mg/dL (0.51-0.95); Potassium 3.8 mmol/L (3.5-5.0); eGFR CKD-EPI 75.4 (>60)
[2023-12-04] MEDS ORDERED: Influenza vaccine *QUAD* *2023-24* 0.5 ML SYRINGE IM ONE (09:00)
[2023-12-04] MEDS: Aspirin EC 81 mg TAB.EC (enteric coated) PO SCH (09:03)
[2023-12-04] MEDS ORDERED: cefTRIAXone 1 gm/50 mL D5W 1 GM/50 ML BAG IV SCH (12:00)
[2023-12-04] MEDS: cefTRIAXone 1 GM Q24H (ADVAN) IVPB SCH (12:06)
[2023-12-04] MEDS: cefTRIAXone 1 gm/50 mL D5W 1 GM/50 ML BAG IV ONE (15:11)
[2023-12-05 06:36] VITALS: BP 102/64
[2023-12-05] MEDS: Influenza vaccine *QUAD* *2023-24* 0.5 ML SYRINGE IM ONE (09:30)
== END 2023-12-05 09:45 | disposition home or self-care (01) | DRG 720 ==
LOC: EDHOLD 08:28 → ED 08:28 → SSU 13:10 → AA 13:14 → SSU 16:37
PROVIDERS: ADMIT Hospitalist; ATTEND Hospitalist

== ENCOUNTER 2024-06-26 08:50 | Observation (INO) ==
[2024-06-26 09:27] LABS: ABS Basophils 0.1 10^3/uL (0.0-0.1); ABS Eosinophils 0.4 10^3/uL (0.0-0.5); ABS Lymphocytes 2.9 10^3/uL (1.0-4.8); ABS Monocytes 0.5 10^3/uL (0.0-0.9); Eosinophil % 4.7 %; Hematocrit 41.4 % (35-45); Hemoglobin 14.1 g/dL (11.5-14.3); Lymphocyte % 32.6 %; Mean Corpuscular Hemoglobin 32.4 pg (27-33); Mean Corpuscular Hgb Conc 34.1 g/dL (31-36); Mean Platelet Volume 9.3 fL (7.5-11.2); Platelet Count 233 10^3/uL (150-450); Red Blood Count 4.35 10^6/uL (3.63-4.92); Red Cell Distribution Width 13.1 % (12-17); White Blood Count 8.8 10^3/uL (3.8-11.8)
[2024-06-26 09:44] LABS: Urine Appearance Clear; Urine Bilirubin Negative (Negative); Urine Blood Negative (Negative); Urine Color Colorless; Urine Glucose Negative (Negative); Urine Ketones Negative (Negative); Urine Nitrite Negative (Negative); Urine Protein Negative (Negative); Urine Specific Gravity 1.009 (1.002-1.030); Urine Urobilinogen Negative (Negative); Urine pH 5.5 (5.0-8.0)
[2024-06-26 09:46] LABS: Activated Partial Thrombo Time 31.3 seconds (26.0-38.0); INR 0.94 (0.85-1.14)
[2024-06-26] MEDS: methylPREDNISolone SOD SUCC 125 mg 2 ML VIAL IV ONE (09:47)
[2024-06-26] MEDS: Ondansetron 4 mg VIAL 2 MG/ML 2 ml VIAL IV ONE (10:03)
[2024-06-26] MEDS: NS 0.9% 1000 ml BAG 1,000 ML IV ONE (10:03)
[2024-06-26 10:22] LABS: Albumin 4.4 g/dL (3.2-5.2); Albumin/Globulin Ratio 1.7 (1-3); Calcium 9.6 mg/dL (8.6-10.3); Creatinine, Serum 0.81 mg/dL (0.51-0.95); Globulin 2.6 g/dL (2-4); HDL Cholesterol 46.7 mg/dL; Indirect Bilirubin 0.5 mg/dL (0.3-1.0); Potassium 4.4 mmol/L (3.5-5.0); Total Bilirubin 0.5 mg/dL (0.2-1.0); eGFR CKD-EPI 86.2 (>60)
[2024-06-26] MEDS: Iodixanol (CONTRAST) 320 MG/ML 100 ML SDV IV ONE (11:19)
[2024-06-26] MEDS ORDERED: Sulfur Hexaflouride MICROSPHR 25 MG VIAL IV PRN (16:31)
[2024-06-26] MEDS: Enoxaparin 40 MG/0.4 ML SYR SUBCUT SCH (19:57)
[2024-06-26 21:34] LABS: HDL Cholesterol 52.4 mg/dL
[2024-06-26 21:54] LABS: HIV 4th Generation Nonreactive (Nonreactive)
[2024-06-27 05:55] LABS: ABS Lymphocytes 1.9 10^3/uL (1.0-4.8); ABS Monocytes 0.7 10^3/uL (0.0-0.9); ABS Neutrophils 12.3 10^3/uL (1.5-7.6); ABS Nucleated RBC 0.02 10^3/ul; Eosinophil % 0.1 %; Hemoglobin 13.2 g/dL (11.5-14.3); Lymphocyte % 12.5 %; Mean Corpuscular Hemoglobin 31.8 pg (27-33); Mean Corpuscular Hgb Conc 33.7 g/dL (31-36); Mean Corpuscular Volume 94.5 fL (80-97); Mean Platelet Volume 9.9 fL (7.5-11.2); Nucleated Red Blood Cells % 0.1 %/100WBC (0.0-0.8); Platelet Count 236 10^3/uL (150-450); Red Blood Count 4.13 10^6/uL (3.63-4.92); Red Cell Distribution Width 13.1 % (12-17); White Blood Count 14.8 10^3/uL (3.8-11.8)
[2024-06-27 06:14] LABS: Calcium 9.4 mg/dL (8.6-10.3); Creatinine, Serum 0.67 mg/dL (0.51-0.95); Magnesium 1.9 mg/dL (1.9-2.7); eGFR CKD-EPI 103.8 (>60)
[2024-06-27 07:25] LABS: Hepatitis C Antibody Reactive (Negative)
[2024-06-27] MEDS: Aspirin EC 81 mg TAB.EC (enteric coated) PO SCH (09:48)
[2024-06-27 13:45] VITALS: BP 135/77
[2024-06-28 12:20] LABS: Protein C Activity 156 % (70 - 150)
[2024-06-28 13:50] LABS: Protein S Activity, P 149 % (65-150)
[2024-06-28 18:09] LABS: Complement C3 148 mg/dL (75 - 175)
== END 2024-06-27 17:00 | disposition home or self-care (01) ==
LOC: ED 08:50 → EDHOLD 08:50 → MED 17:50
PROVIDERS: ADMIT Student in an Organized Health Care Education/Training Program; ATTEND Student in an Organized Health Care Education/Training Program